=== PATIENT | male | born 1945 | race Caucasian/White ===

== ENCOUNTER → 2016-10-01 | Outpatient (CLI) | payer BC ==
[~2016-10-01] MED LIST: AMOX1TAB43 PO; ANT25 PO; ASPEC325 PO; ATEN50TA8 PO; COENCAP PO; DUTA0.5C PO; FLAX1CAP11 PO; GEMF600T3 PO; LISI-461 PO; MULT-506 PO; NSP500 PO; NTRAR PO; PRLSR20 PO; PXL20 PO; [UNRECOGNIZED DRUG - OTHER] OR
[2016-10-01 14:06] LABS: MEAN CELL VOLUME 92.3 fL (80-100); MEAN CORPUSCULAR HEMOGLOBIN 30.3 pg (25-34); MEAN CORPUSCULAR HGB CONC 32.8 g/dl (32-36); PLATELET COUNT 26 K/uL (130-400); RED BLOOD COUNT 4.66 M/uL (4.7-6.1); WHITE BLOOD COUNT 5.13 K/uL (4.8-10.8)
[2016-10-01 14:07] LABS: BASO % 1.4 %; BASO ABS # 0.07 K/uL (0-0.2); COMPLETE YES; EOS % 6.8 %; IG% 0.2 %; LYMPH % 34.1 %; LYMPH ABS # 1.75 K/uL (1.2-3.4); MONO % 10.9 %; NEUT % 46.6 %; PLT ESTIMATE DECREASED
[2016-10-01 14:15] LABS: AST/SGOT 26 U/L (15-37); BLOOD UREA NITROGEN 19 mg/dl (7-18); BUN/CREATININE RATIO 12.6 (10-20); CALCIUM 8.8 mg/dl (8.5-10.1); CARBON DIOXIDE 27 mmol/L (21-32); CHLORIDE 108 mmol/L (98-107); GLUCOSE 106 mg/dl (70-99); POTASSIUM 4.4 mmol/L (3.5-5.1); SODIUM 143 mmol/L (136-145)
[2016-10-01 14:18] LABS: ALT/SGPT 35 U/L (12-78); CHOLESTEROL 183 mg/dl (0-200); CHOLESTEROL/HDL RATIO 4.8; HDL CHOLESTEROL 38 mg/dl; LDL CHOLESTEROL CALCULATED 116 mg/dl; TRIGLYCERIDES 143 mg/dl (0-150); VERY LOW DENSITY LIPOPROT CALC 29 mg/dl
[2016-10-01 14:29] LABS: ESTIMATED AVERAGE GLUCOSE 111 mg/dl; HA1C FLAG Normal (Normal)
== END | disposition home or self-care (01) ==
LOC: C.LABBC 10:09
PROVIDERS: ATTEND Internal Medicine
DX: E78.5 Hyperlipidemia, unspecified (principal); R73.9 Hyperglycemia, unspecified; E55.9 Vitamin D deficiency, unspecified; R53.83 Other fatigue

== ENCOUNTER → 2016-10-02 | Outpatient (CLI) | payer BC, OTHER ==
[2016-10-02 11:11] LABS: HEMATOCRIT 41.8 % (42-52); MEAN CELL VOLUME 91.7 fL (80-100); MEAN CORPUSCULAR HEMOGLOBIN 29.8 pg (25-34); MEAN CORPUSCULAR HGB CONC 32.5 g/dl (32-36); MEAN PLATELET VOLUME 13.3 fL (7.4-10.4); PLATELET COUNT 26 K/uL (130-400); RED BLOOD COUNT 4.56 M/uL (4.7-6.1); WHITE BLOOD COUNT 6.59 K/uL (4.8-10.8)
[2016-10-02 11:12] LABS: BASO % 0.9 %; BASO ABS # 0.06 K/uL (0-0.2); COMPLETE YES; EOS % 6.1 %; IG% 0.3 %; LYMPH % 32.5 %; LYMPH ABS # 2.14 K/uL (1.2-3.4); MONO % 10.8 %; NEUT % 49.4 %; PLT ESTIMATE SIGNIFIC DECREASED
== END | disposition home or self-care (01) ==
LOC: C.LABBC 08:06
PROVIDERS: ATTEND Internal Medicine
DX: D69.6 Thrombocytopenia, unspecified (principal)

== ENCOUNTER → 2016-10-17 | Outpatient (CLI) | payer BC | END | disposition home or self-care (01) | LOC: C.LABBC 09:57 | PROVIDERS: ATTEND Internal Medicine | DX: Z00.00 Encounter for general adult medical examination without abnormal findings (principal); Z11.59 Encounter for screening for other viral diseases ==

== ENCOUNTER → 2016-10-28 | Outpatient (CLI) | payer BC | END | disposition home or self-care (01) | LOC: C.LABBC 14:23 | PROVIDERS: ATTEND Internal Medicine | DX: N40.1 Benign prostatic hyperplasia with lower urinary tract symptoms (principal) ==

== ENCOUNTER → 2017-01-30 | Outpatient (CLI) | payer BC ==
[~2017-01-30] MED LIST changes: +GADAVIST IV PRN
--- NOTE | 2017-01-30 07:50 | DIAGNOSTIC IMAGING REPORT ---
MRI OF THE BRAIN WITHOUT AND WITH IV CONTRAST CLINICAL HISTORY: DAILY HEADACHES, THROMBOCYTOPENIA. COMPARISON STUDY: MRI of the brain November 20, 2015. TECHNIQUE: Utilizing a 1.5 Tamiko magnet and dedicated coil, multiplanar, multiecho imaging of the brain was performed pre and postcontrast administration. IV administration of 9.5 mL of Gadavist contrast was uneventful. FINDINGS: There are no areas of restricted diffusion. No acute intracranial hemorrhage, midline shift or mass effect is present. Ventricular system is stable. Basilar cisterns are patent. There are no extra-axial collections. Flow-voids for the major intracranial vessels are present. No intracranial mass or pathologic enhancement is present. Scattered white matter T2 hyperintense foci are unchanged since MRI November 20, 2015 and suggest mild small vessel disease. There is mild mucosal thickening of the ethmoid sinuses. Orbits are unremarkable. Calvarium is normal. IMPRESSION: 1. No acute intracranial findings. 2. No intracranial mass or pathologic enhancement. 3. No change in appearance of the brain since exam of November 20, 2015. 4. Mild ethmoid sinus mucosal thickening. Electronically signed by: Jones Nick M.D. 01/30/2017 7:49 AM Dictated Date/Time: 01/30/2017 7:43 AM
== END | disposition home or self-care (01) ==
PROVIDERS: ATTEND Internal Medicine Hematology & Oncology
DX: D69.3 Immune thrombocytopenic purpura (principal); R51 Headache

== ENCOUNTER → 2017-03-11 | Outpatient (CLI) | payer BC ==
[~2017-03-11] MED LIST changes: -GADAVIST IV PRN
== END | disposition home or self-care (01) ==
LOC: C.LABBC 08:42
PROVIDERS: ATTEND Urology
DX: R97.20 Elevated prostate specific antigen [PSA] (principal)

== ENCOUNTER → 2017-05-19 | Outpatient (CLI) | payer BC ==
[2017-05-19 11:26] LABS: MEAN CELL VOLUME 90.7 fL (80-100); MEAN CORPUSCULAR HEMOGLOBIN 30.2 pg (25-34); MEAN CORPUSCULAR HGB CONC 33.3 g/dl (32-36); MEAN PLATELET VOLUME 11.4 fL (7.4-10.4); PLATELET COUNT 226 K/uL (130-400); RED BLOOD COUNT 4.74 M/uL (4.7-6.1); WHITE BLOOD COUNT 5.62 K/uL (4.8-10.8)
[2017-05-19 11:46] LABS: ALT/SGPT 63 U/L (12-78); AST/SGOT 38 U/L (15-37); BLOOD UREA NITROGEN 20 mg/dl (7-18); BUN/CREATININE RATIO 11.9 (10-20); CALCIUM 9.1 mg/dl (8.5-10.1); CARBON DIOXIDE 27 mmol/L (21-32); CHLORIDE 103 mmol/L (98-107); GLUCOSE 102 mg/dl (70-99); POTASSIUM 4.6 mmol/L (3.5-5.1); SODIUM 136 mmol/L (136-145)
[2017-05-19 11:49] LABS: CHOLESTEROL 216 mg/dl (0-200); CHOLESTEROL/HDL RATIO 6.2; HDL CHOLESTEROL 35 mg/dl; LDL CHOLESTEROL CALCULATED 146 mg/dl; TRIGLYCERIDES 175 mg/dl (0-150); VERY LOW DENSITY LIPOPROT CALC 35 mg/dl
== END | disposition home or self-care (01) ==
LOC: C.LABBC 08:25
PROVIDERS: ATTEND Internal Medicine
DX: I10 Essential (primary) hypertension (principal); E53.8 Deficiency of other specified B group vitamins; E55.9 Vitamin D deficiency, unspecified; E78.5 Hyperlipidemia, unspecified; D69.3 Immune thrombocytopenic purpura

== ENCOUNTER → 2017-06-26 | Outpatient (CLI) | payer BC ==
[2017-06-26 11:22] LABS: BLOOD UREA NITROGEN 18 mg/dl (7-18); BUN/CREATININE RATIO 11.5 (10-20); CALCIUM 9.9 mg/dl (8.5-10.1); CARBON DIOXIDE 26 mmol/L (21-32); CHLORIDE 107 mmol/L (98-107); GLUCOSE 104 mg/dl (70-99); POTASSIUM 4.4 mmol/L (3.5-5.1); SODIUM 139 mmol/L (136-145)
== END | disposition home or self-care (01) ==
LOC: C.LABBC 08:35
PROVIDERS: ATTEND Internal Medicine
DX: E78.5 Hyperlipidemia, unspecified (principal); R73.9 Hyperglycemia, unspecified

== ENCOUNTER → 2017-08-06 | Outpatient (CLI) | payer BC ==
[~2017-08-06] MED LIST changes: +GADAVIST IV PRN
--- NOTE | 2017-08-06 11:31 | DIAGNOSTIC IMAGING REPORT ---
PROSTATE MRI COMBO CLINICAL HISTORY: 71 years-old Male presenting with ELEVATED PSA, history of negative biopsy 10 years ago. PSA 4.47 ng/mL. TECHNIQUE: Multisequence, multiplanar MR imaging of the prostate was performed before and after the administration of intravenous contrast. Additional postprocessing was performed on a separate [employer] workstation by the radiologist for 3-D volumetric segmentation of the prostate and contouring of region(s) of interest (ANGIE) for targeting. IV contrast: 9.9 mL of Gadavist COMPARISON: None. FINDINGS: Prostate: The prostate measures 5.9 x 4.9 x 6.0 cm (DynaCAD prostate boundary segmentation volume 82 mL). Severe changes of benign prostatic hyperplasia. Precontrast T1 weighted imaging demonstrates no evidence of intrinsic T1 hyperintensity to suggest hemorrhage. Seminal vesicles atrophic. Peripheral zone diffusely atrophic and heterogeneously hypointense, limiting diagnostic sensitivity. Focal ovoid hypodense nodule without restricted diffusion in the left transition zone at the mid gland, likely a stromal predominant BPH nodule. No convincing evidence of an indistinct hypointense focus in the transition zone to suggest a suspicious lesion. No restricted diffusion in the peripheral zone to suggest a suspicious lesion. Bladder: Bladder wall thickening likely indicating chronic outlet obstruction. Bowel: Visualized portion of the rectum normal. Peritoneum: No free fluid in the pelvis. Lymph nodes: No lymphadenopathy in the visualized portion of the pelvis. Vasculature: Iliac vessels patent. Osseous structures: Normal bone marrow signal intensity. IMPRESSION: 1. No suspicious lesion for targeted biopsy. 2. Benign prostatic hyperplasia. T2 hypointense nodules in the transition zone likely represent stromal predominant BPH. Electronically signed by: Seth Jeronimo M.D. 08/06/2017 11:29 AM Dictated Date/Time: 08/06/2017 11:20 AM
== END | disposition home or self-care (01) ==
LOC: C.MRIBC 09:18
PROVIDERS: ATTEND Urology
DX: R97.20 Elevated prostate specific antigen [PSA] (principal); N40.0 Benign prostatic hyperplasia without lower urinary tract symptoms

== ENCOUNTER → 2017-09-12 | Outpatient (CLI) | payer BC ==
[~2017-09-12] MED LIST changes: -GADAVIST IV PRN
[2017-09-12 13:28] LABS: ALT/SGPT 105 U/L (12-78); BLOOD UREA NITROGEN 17 mg/dl (7-18); BUN/CREATININE RATIO 10.3 (10-20); CALCIUM 9.9 mg/dl (8.5-10.1); CARBON DIOXIDE 27 mmol/L (21-32); CHLORIDE 104 mmol/L (98-107); CREATININE 1.62 mg/dl (0.60-1.40); GLUCOSE 101 mg/dl (70-99); POTASSIUM 4.3 mmol/L (3.5-5.1); SODIUM 136 mmol/L (136-145)
[2017-09-12 13:30] LABS: ALB/GLOB RATIO 0.9 (0.9-2); ALKALINE PHOSPHATASE 74 U/L (45-117); AST/SGOT 78 U/L (15-37)
== END | disposition home or self-care (01) ==
LOC: C.LABBC 08:46
PROVIDERS: ATTEND Internal Medicine
DX: R79.89 Other specified abnormal findings of blood chemistry (principal)

== ENCOUNTER → 2017-09-23 | Outpatient (CLI) | payer BC ==
--- NOTE | 2017-09-23 11:59 | DIAGNOSTIC IMAGING REPORT ---
(LIVER) ABDOMEN LIMITED CLINICAL HISTORY: R79.89 Elevated LFTs abnormal liver enzymes TECHNIQUE: Ultrasound COMPARISON STUDY: 12/21/2009 FINDINGS: Similar exam compared to the prior study. Mild fatty infiltration of liver. Several small gallstones. Common bile duct 5 mm. Right kidney is negative for hydronephrosis. IMPRESSION: 1. Mild fatty infiltration of liver. 2. Several small gallstones. 3. Normal caliber bile duct. The above report was generated using voice recognition software. It may contain grammatical, syntax or spelling errors. Electronically signed by: Shadi Benson M.D. 09/23/2017 11:58 AM Dictated Date/Time: 09/23/2017 11:57 AM
== END | disposition home or self-care (01) ==
LOC: C.ULTR 10:06
PROVIDERS: ATTEND Internal Medicine
DX: R79.89 Other specified abnormal findings of blood chemistry (principal); K80.20 Calculus of gallbladder without cholecystitis without obstruction

== ENCOUNTER → 2017-10-28 | Outpatient (CLI) | payer BC ==
[2017-10-28 10:56] LABS: BASO ABS # 0.07 K/uL (0-0.2); EOS % 6.7 %; EOS ABS # 0.46 K/uL (0-0.5); HEMATOCRIT 45.6 % (42-52); HEMOGLOBIN 15.3 g/dL (14.0-18.0); IG# 0.05 K/uL (0.00-0.02); LYMPH % 29.4 %; LYMPH ABS # 2.01 K/uL (1.2-3.4); MEAN CELL VOLUME 96.6 fL (80-100); MEAN CORPUSCULAR HEMOGLOBIN 32.4 pg (25-34); MEAN CORPUSCULAR HGB CONC 33.6 g/dl (32-36); MEAN PLATELET VOLUME 12.1 fL (7.4-10.4); MONO % 11.7 %; NEUT % 50.5 %; NEUT ABS # 3.44 K/uL (1.4-6.5); PLATELET COUNT 201 K/uL (130-400); RED CELL DISTRIBUTION WIDTH CV 13.5 % (11.5-14.5); RED CELL DISTRIBUTION WIDTH SD 47.6 fL (36.4-46.3); WHITE BLOOD COUNT 6.83 K/uL (4.8-10.8)
[2017-10-28 11:21] LABS: ALBUMIN 3.9 gm/dl (3.4-5.0); TOTAL PROTEIN 8.2 gm/dl (6.4-8.2)
== END | disposition home or self-care (01) ==
LOC: C.LABBC 08:58
PROVIDERS: ATTEND Internal Medicine
DX: R79.89 Other specified abnormal findings of blood chemistry (principal); H83.09 Labyrinthitis, unspecified ear; D69.6 Thrombocytopenia, unspecified

== ENCOUNTER → 2018-01-21 | Outpatient (CLI) | payer BC ==
[2018-01-21 15:20] LABS: ALBUMIN 3.8 gm/dl (3.4-5.0); ALT/SGPT 60 U/L (12-78); AST/SGOT 43 U/L (15-37); BLOOD UREA NITROGEN 17 mg/dl (7-18); CALCIUM 9.4 mg/dl (8.5-10.1); CARBON DIOXIDE 24 mmol/L (21-32); GLUCOSE 111 mg/dl (70-99); POTASSIUM 4.7 mmol/L (3.5-5.1); SODIUM 138 mmol/L (136-145)
[2018-01-21 15:24] LABS: ALKALINE PHOSPHATASE 78 U/L (45-117); CHOLESTEROL 199 mg/dl (0-200); LDL CHOLESTEROL CALCULATED 135 mg/dl; TOTAL PROTEIN 7.9 gm/dl (6.4-8.2)
== END | disposition home or self-care (01) ==
LOC: C.LABBC 10:38
PROVIDERS: ATTEND Internal Medicine
DX: E78.5 Hyperlipidemia, unspecified (principal); R73.9 Hyperglycemia, unspecified; R79.89 Other specified abnormal findings of blood chemistry

== ENCOUNTER → 2018-01-26 | Outpatient (CLI) | payer BC | END | disposition home or self-care (01) | LOC: C.LAB 12:32 | PROVIDERS: ATTEND Urology | DX: R97.20 Elevated prostate specific antigen [PSA] (principal) ==

== ENCOUNTER → 2018-05-20 | Outpatient (CLI) | payer BC ==
[~2018-05-20] MED LIST changes: -GEMF600T3 PO; +GEMF600T5 PO
== END | disposition home or self-care (01) ==
LOC: C.LABBC 15:03
PROVIDERS: ATTEND Internal Medicine Cardiovascular Disease
DX: R00.0 Tachycardia, unspecified (principal)

== ENCOUNTER 2020-07-21 07:08 | Observation (INO) ==
[2020-07-21] MEDS ORDERED: HEPARIN (PORCINE) 1000 UNIT/ML 10 ML (CATH LAB USE ONLY) ONE (11:29)
[2020-07-21] MEDS ORDERED: fentaNYL citrate 100 MCG/2 ML VIAL ONE ×2 (11:29→13:01)
[2020-07-21] MEDS ORDERED: MIDAZOLAM HCL 1 MG/ML 2ML VIAL ONE ×2 (11:29→13:01)
[2020-07-21] MEDS ORDERED: niCARdipine HCL INJ 2.5 MG/ML 10 ML AMP ONE (11:29)
[2020-07-21] MEDS ORDERED: NITROGLYCERIN/D5W 100MCG/ML 20ML SYR ONE (11:30)
--- NOTE | 2020-07-21 11:41 | Pre Anesthesia Assessment ---
Date of Service July 21, 2020 Pre Sedation Assessment Vital Signs Temp Pulse Resp BP Pulse Ox 07/21/20 07:44 98.1 F 52 L 16 147/85 H 100 Cardiovascular RRR, no murmur, no edema Respiratory normal respiratory effort, lungs clear to auscultation Pre-Sedation Airway Assessment Smoking Status: Former smoker Hx Sleep Apnea: No Hx Difficult Intubation: No Short, Thick Neck: No Oral Cavity: + WNL Mallampati Class: IV ASA: ASA4 NPO Status Date of Last Intake of Fluids: 07/21/20 Time of Last Intake of Fluids: 06:30 Last Oral Intake of Fluids Comment: sip with meds Date of Last Intake of Solid Food: 07/20/20 Time of Last Intake of Solid Foods: 20:00 Procedure Planning Contraindications for Sedation: none Current Medications Reviewed: Yes Notes The planned sedation has been discussed with the patient. Informed Consent was obtained. I have identified the patient, determined the appropriateness of sedation and have assessed the patient immediately prior to the procedure. All medicine(s) and interventions are by my order.
--- NOTE | 2020-07-21 11:42 | History & Physical Bridge Note ---
Date of Service July 21, 2020 History & Physical Bridge Note I have examined the patient, reviewed the History & Physical and in the interval since the performance of the History & Physical I have noted the following changes of clinical significance: no changes noted
[2020-07-21] MEDS ORDERED: CLOPIDOGREL BISULFATE 300 MG TAB ONE (13:33)
[2020-07-21] MEDS ORDERED: EPTIFIBATIDE 0.75 MG/ML 75MG VIAL (CATH LAB USE ONLY) ONE (13:36)
[2020-07-21] MEDS ORDERED: EPTIFIBATIDE 2 MG/ML 10 ML VIAL (CATH LAB USE ONLY) IV ONE (13:36)
--- NOTE | 2020-07-21 13:45 | Post Anesthesia Assessment ---
Date of Service July 21, 2020 Post Sedation Assessment Vital Signs Temp Pulse Resp BP Pulse Ox 07/21/20 07:44 98.1 F 52 L 16 147/85 H 100 Recovery Score Activity: Moves 4 extremities Respiration: Deep Breath/Cough Circulation: +/-20% PreAnes Value Consciousness: Fully Awake Oxygen Saturation: O2 needed for >90% Discharge Sedation Level of Care: Fast Track Phase II Post Sedation Plan On clinical assessment, the patient appears to have tolerated the sedation without complications. Patient is recovering as anticipated. Patient will continue to be monitored by nursing and may be discharged when sedation discharge criteria are met per below protocol. Upon Completions of procedure up to 15 minutes continue every 5 minute vital signs and the P.A.R. score; then discharge to a Phase I or Fast Track to Phase II per the following guidelines: * Discharge Patient to appropriate Phase II area if PAR is 8 or greater or return to pre- procedure baseline. The post - procedure orders will be as directed. * If PAR score is less than 8 or not return to pre-procedure baseline then patient will follow Phase I monitoring till PAR is reached for Phase II. The Phase I may be done in procedure room or may call to secure a Phase I area. * If naloxone or flumazenil are used for reversal, hold in Phase I for continued monitoring from when last reversal dose was given for a minimum of 60 minutes or longer pending the nurse and/or physician discretion of patient condition before discharge to Phase II. Please call the Sedation Physician to re-evaluate and complete post-note for discharge to Phase II area. Do NOT discharge from procedure sedation or Phase 1 until post- sedation evaluation note is complete by procedure /sedation MD Sedation Discharge Instructions to be given to the patient at discharge to home.
[2020-07-21] MEDS ORDERED: EPTIFIBATIDE BOLUS/DRIP IV STA (13:46)
[2020-07-21] MEDS ORDERED: ACETAMINOPHEN 325 MG TAB PO PRN (13:46)
[2020-07-21] MEDS ORDERED: NITROGLYCERIN SL 0.4 MG/TAB TAB SL PRN (13:46)
[2020-07-21] MEDS ORDERED: ONDANSETRON INJ 2 MG/ML 2 ML VIAL IV PRN (13:46)
[2020-07-21] MEDS ORDERED: MECLIZINE HCL 25 MG TAB PO PRN (15:41)
--- NOTE | 2020-07-21 16:32 | Cardiac Catheterization ---
[facility] Data: Plant And Maintenance Technician Cardiac Status Clinical evaluation leading to the procedure CAD Presenation: Unstable angina Anginal Classification: CCS IV Heart Failure: No Cardiogenic Shock within 24 Hours: No Cardiac Arrest within 24 Hours: No Imaging Studies Past 6 Months: Yes Stress Studies Past 6 Months: No Diagnostic Physicians Name: Carlos Barajas MD Status: Elective Closure Device Percutaneous Entry Location: Radial Closure Device: Radial Band Recommendations: PCI without planned CABG Lesion Segment Name: Mid RCA Culprit Artery: Yes Stenosis Prior to Rx (%): 99 Chronic Total Occlusion: No IVUS: No Pre-Procedure KHALIF Flow: 3 Previously Treated Lesion: No Lesion Complexity: High/C Lesion Length (mm): 35 Thrombus Present: Yes Bifurcation Lesion: No Guidewire Across Lesion: Stenosis Post-Procedure (%): 0 Post-Procedure KHALIF Flow: 3 Devices(s) Deployed: Yes Yes Intraprocedure Events Significant Disection: No Perforation: No Cardiac Cath Procedure Full Procedure Date July 21, 2020 Pre-Procedure Diagnosis Pre-Procedure Diagnosis: Acute Coronary Syndrome AUC Score AUC Score: 7 Post-Procedure Diagnosis Post-Procedure Diagnosis: Severe CAD, Successful PCI and Elevated Intracardiac Pressures Procedure(s) Performed Procedure(s) Performed: Coronary Angiography, Left Heart Cath, Drug Eluting Stent and Ultrasound Guided Vascular Access Licensed Mortician Carlos Barajas MD Technical Consultant(s) uJni Celaya Estimated Blood Loss Estimated Blood Loss: 15 Medication(s) Medication(s): Fentanyl, Heparin, Lidocaine 1%, Nicardipine, Nitroglycerin and Versed Summary of Findings Indication: Unstable angina Access: 6 Fr right radial artery under ultrasound guidance Catheters: [employer], JR4 guide Findings: LM -normal caliber, luminal irregularities LAD -small caliber, 50 to 60% proximal stenosis, diffuse 30 to 40% mid segment disease, distal vessel with luminal irregularities and return apex. D2 with 70% ostial stenosis. Circumflex -medium caliber, patent proximal to mid stent with 30 to 40% in-stent restenosis. Medium caliber OM 2 and distal AV groove circumflex with luminal irregularities. RCA -dominant, heavily calcified, medium caliber, diffuse moderate RCA disease before 99% acute latemid stenosis. Diffuse 30 to 40% distal RCA disease extending into small right PDA. LVEDP -22 -- PCI -- Antithrombotic therapy: Heparin, clopidogrel, Integrilin Procedure: RCA cannulated with JR4 guide Grid Maker 50 wire passed across lesion into distal vessel With the aid of a telescope support catheter mid RCA dilated with 1.5, 2.0, 2.5 and 3.0 compliant balloons. Earlymid RCA segment dilated with 2.75 NC. Eventually able to deliver 2.5 x 12 mm Eduard JUVENCIO across latemid stenosis. Second JUVENCIO (2.75 x 18 mm [place]) placed to mid segment overlapping with proximal aspect of initially placed stent. Stent post-dilated with 2.75 noncompliant balloon IC vasodilators administered for spasm Area of haziness proximal to second stent and with angioplasty of that area and possible trauma from support catheter a third JUVENCIO placed (2.75 x 15 Eduard) overlapping proximal aspect of second stent. Post procedure KHALIF 3 flow, stents well expanded with minimal residual stenosis. New area of haziness immediately downstream from distalmost stent appeared most consistent with thrombus. Started on Integrilin infusion. Arterial Closure: TR band Summary: 1. Severe multi-vessel coronary artery disease -Heavily calcified, diffusely diseased mid RCA up to 99% 50 to 60% proximal LAD, 70% ostial D2 Patent circumflex stent with 30 to 40% in-stent restenosis 2. Elevated intracardiac filling pressure 3. Successful PCI of diffuse mid RCA disease with 3 overlapping drug-eluting stents (2.75 x 15, 2.75 x 18, 2.5 x 12 mm Eduard). Recommendations: To PCU for continued monitoring Loaded with clopidogrel 600 mg in Plant And Maintenance Technician Continue Integrilin for 8 hours Continue dual-antiplatelet therapy for at least 1 year, likely indefinitely with multivessel disease and overlapping stents. Continue ASCVD risk factor modification Consult cardiac Rehab Hemodynamics Rest Ao:: 125/69/92 Final Ao: 114/61/83 LV: 128/22 Recommendations Recommendations: PCI without planned CABG Specimens Specimens: None Radiation Exposure (mGy) 5512 Contrast (mls) 110 Fluids (cc crystalloids) Fluids (cc crystalloids): 380 Drains Drains: None Anesthesia Moderate Procedural Complication(s) None Disposition PCU I attest to the content of the Intraoperative Record and any orders documented therein. Any exceptions are noted below. [facility] Card Cath Procedure Codes Cardiac Catheterization Procedure 1: Cardiovascular Cath Procedures: 21335 Coronaries and LHC (+/-LV) Therapeutic Services & Ancillary Proc Procedure 1: Cardiovascular Tx and Anc Procedures: 32809 Ultrasonic Guidance Vascular Access Stenting Procedure 1: Cardiovascular Stent Procedures: 07747 Perc transcatheter placement of intracoronary stent(s), with ang PG Care Time/CCT Total # of Minutes Spent Total Time Spent with Patient: Total time spent is greater than 50% in coordination of care (as documented) at patient's floor/unit and/or counseling patient:
[2020-07-21] MEDS: EPTIFIBATIDE 75 MG/100 ML VIAL IV SCH ×2 (17:08→20:12)
[2020-07-21] MEDS: gemfibroziL 600 MG TAB PO SCH (19:52)
[2020-07-21] MEDS ORDERED: AMITRIPTYLINE HCL 10 MG TAB PO SCH (21:00)
[2020-07-21] MEDS ORDERED: NIACIN 500 MG TAB PO SCH (21:00)
[2020-07-21] MEDS ORDERED: NIACIN EXTENDED REL 500 MG TABCR PO SCH (21:00)
[2020-07-22 06:00] LABS: Basophils # (auto) 0.01 K/uL (0-0.2); Basophils % (auto) 0.1 %; Eosinophils # (auto) 0.23 K/uL (0-0.5); Eosinophils % (auto) 2.9 %; Hematocrit (blood only) 43.2 % (42-52); Hemoglobin 14.6 g/dL (14.0-18.0); Immature Granulocytes # (auto) 0.03 K/uL (0.00-0.02); Immature Granulocytes % (auto) 0.4 %; Lymphocytes # (auto) 1.66 K/uL (1.2-3.4); Lymphocytes % (auto) 20.9 %; Mean Corpuscular Hemoglobin 32.3 pg (25-34); Mean Corpuscular Hgb Conc 33.8 g/dL (32-36); Mean Corpuscular Volume 95.6 fL (80-100); Mean Platelet Volume 12.4 fL (7.4-10.4); Monocytes # (auto) 0.38 K/uL (0.11-0.59); Monocytes % (auto) 4.8 %; Neutrophils # (auto) 5.62 K/uL (1.4-6.5); Neutrophils % (auto) 70.9 %; Platelet Count 148 K/uL (130-400); Red Blood Count 4.52 M/uL (4.7-6.1); White Blood Count 7.93 K/uL (4.8-10.8)
[2020-07-22 06:27] LABS: BUN Creatinine Ratio 12.2 (10-20); Calcium 8.9 mg/dl (8.5-10.1); Creatinine Clr Calc Pharmacy 49.2 ml/min; Est GFR (African American) 50.4; Est GFR (Non-African American) 43.5; Potassium 4.1 mmol/L (3.5-5.1)
[2020-07-22] MEDS: gemfibroziL 600 MG TAB PO SCH (08:55)
[2020-07-22] MEDS ORDERED: FAMOTIDINE 20 MG TAB PO SCH (09:00)
[2020-07-22] MEDS ORDERED: CYANOCOBALAMIN 500 MCG TABLET (VITAMIN B-12) PO SCH (09:00)
[2020-07-22] MEDS ORDERED: MAGNESIUM OXIDE 400 MG TAB PO SCH (09:00)
[2020-07-22] MEDS ORDERED: CLOPIDOGREL BISULFATE 75 MG TAB PO SCH (09:00)
[2020-07-22] MEDS ORDERED: LOSARTAN POTASSIUM 25 MG TAB PO SCH (09:00)
[2020-07-22] MEDS ORDERED: METOPROLOL SUCC 50MG EXT REL TAB PO SCH (09:00)
[2020-07-22] MEDS ORDERED: ASPIRIN 81 MG ECTAB PO SCH (09:00)
[2020-07-22] MEDS ORDERED: NON-FORMULARY MEDICATION (Coenzyme Q10 [Coq-10] 100 MG) PO SCH (09:00)
[2020-07-22] MEDS ORDERED: PARoxetine HCL 20 MG TAB PO SCH (09:00)
--- NOTE | 2020-07-23 13:51 | Electrocardiogram Report ---
Test Reason : Blood Pressure : / mmHG Vent. Rate : 052 BPM Atrial Rate : 052 BPM P-R Int : 216 ms QRS Dur : 132 ms QT Int : 450 ms P-R-T Axes : 044 017 -05 degrees QTc Int : 418 ms Sinus bradycardia with 1st degree A-V block Right bundle branch block Inferior infarct , age undetermined Abnormal ECG When compared with ECG of 06-MAR-2019 14:27, Vent. rate has decreased BY 54 BPM Inferior infarct is now Present ST elevation has replaced ST depression in Anterior leads T wave inversion more evident in Inferior leads T wave inversion no longer evident in Anterior leads Confirmed by Sandoval Guajardo ([id number]) on 07/23/2020 1:50:36 PM Referred By: Simon Barajas Confirmed By:Sandoval Guajardo
--- NOTE | 2020-07-30 09:07 | Discharge Summary ---
Date of Service July 30, 2020 Admission HPI Per Admitting Provider Mr. Gallardo is a 74-year-old man with a history of coronary artery disease referred for cardiac catheterization setting accelerating angina. His primary home inspector is Dr. Moy. History per his last note: History of myocardial infarction 1996. Subsequent PTCA of totally occluded left circumflex coronary artery. Cardiac catheterization 1999 with normal overall left ventricular systolic function, posterolateral hypokinesis, severe stenosis in left circumflex extending into left circumflex marginal. 2.5 x 16 mm stent deployed. Prior catheterization in 1996 had revealed a 50% mid LAD, 50% distal RCA, and total proximal left circumflex stenosis. Right to left collateral flow present at that time. Persantine Cardiolite scan 2007 negative for evidence of myocardial ischemia. Normal left ventricular wall motion. History of diverticulosis. Dyslipidemia.Intolerant of multiple statins. 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 Initially treated with steroids. Then treated with immunoglobulin therapy. Then treated with Rituxan. Platelet count was as low as 7000. It returned to normal . Approximately 1 week after starting Rituxan developed left-sided headache and left ear tinnitus. Associated vertigo. With amitriptyline the headaches improved. No visual changes. 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 Admission to [facility] in [facility] December 10, 2019-December 14 2019 for viral gastroenteritis, and acute kidney injury. He presented with nausea, vomiting, and diarrhea. During admission troponin was elevated to 1.88. No anginal symptoms. Electrocardiogram without any acute changes of myocardial ischemia or injury. No cardiac evaluation performed other than the electrocardiogram. The troponin levels decreased during the admission. Was felt that he had a type [address] elevation myocardial infarction. Specialty Data Cardiology Cardiac catheterization/PCI: 1. Severe multi-vessel coronary artery disease -Heavily calcified, diffusely diseased mid RCA up to 99% 50 to 60% proximal LAD, 70% ostial D2 Patent circumflex stent with 30 to 40% in-stent restenosis 2. Elevated intracardiac filling pressure 3. Successful PCI of diffuse mid RCA disease with 3 overlapping drug-eluting stents (2.75 x 15, 2.75 x 18, 2.5 x 12 mm Bradshaw). Recommendations: To PCU for continued monitoring Loaded with clopidogrel 600 mg in Research Biologist Continue Integrilin for 8 hours Continue dual-antiplatelet therapy for at least 1 year, likely indefinitely with multivessel disease and overlapping stents. Continue ASCVD risk factor modification Consult cardiac Rehab Discharge Data Consultations 07/21/20 13:48 Consult Cardiac Rehabilitation Routine Procedures Performed Operation Date: 07/21/20 11:00 Actual Procedures p Cath, Left with Cors and Vent - Simon Barajas MD s Cineradiography w/Routine Exam - Simon Barajas MD s Drug Eluting Stent SGl Vessel - Simon Barajas MD s Ultrasound Vascular Access - Simon Barajas MD Hospital Course (1) Arteriosclerotic cardiovascular disease: Patient underwent cardiac catheterization via right radial artery. He was found to have severe, heavily calcified single-vessel disease involving his RCA. He underwent PCI to his diffusely diseased mid RCA with 3 overlapping drug- eluting stents. Post procedure there was questionable mild residual thrombus just distal to stents. Treated with Integrilin infusion overnight. Post procedure he had no chest pain and was feeling well. He remained hemodynamically and electrically stable. Post procedure labs stable. No apparent access site complications. On hospital day 2 he was discharged home on DAPT with aspirin, clopidogrel. He will follow-up with Dr. Moy in 2 weeks. Discharge Instructions Home Medications Prostate Health 1 tab PO DAILY 03/06/19 [History Confirmed 07/24/20] cholecalciferol (vitamin D3) [Vitamin D3] 1,000 unit PO DAILY 03/06/19 [History Confirmed 07/24/20] cyanocobalamin (vitamin B-12) [Vitamin B-12] 1,000 mcg PO DAILY 03/06/19 [History Confirmed 07/24/20] flaxseed oil 2,000 mg PO QPM 03/06/19 [History Confirmed 07/24/20] niacin 2,000 mg PO HS 03/06/19 [History Confirmed 07/24/20] riboflavin (vitamin B2) [Vitamin B-2] 200 mg PO BID 03/06/19 [History Confirmed 07/24/20] coenzyme Q10 100 mg capsule 100 mg PO DAILY cap 05/10/19 [History Confirmed 07/24/20] meclizine 25 mg tablet 25 mg PO DAILY PRN #90 tab 05/13/19 [Rx Confirmed 07/24/20] amitriptyline 10 mg tablet 20 mg PO HS #180 tab 07/17/20 [Rx Confirmed 07/24/20] famotidine 20 mg tablet 20 mg PO DAILY #90 tab 07/17/20 [Rx Confirmed 07/24/20] gemfibrozil 600 mg tablet 600 mg PO BID #180 tab 07/17/20 [Rx Confirmed 07/24/20] losartan 25 mg tablet 25 mg PO DAILY #90 tab 07/17/20 [Rx Confirmed 07/24/20] magnesium oxide 400 mg (241.3 mg magnesium) tablet 400 mg PO DAILY #90 tab 07/17/20 [Rx Confirmed 07/24/20] metoprolol succinate 100 mg tablet,extended release 24 hr 100 mg PO DAILY #90 tab 07/17/20 [Rx Confirmed 07/24/20] nitroglycerin 400 mcg/spray translingual 1 spray SUBLINGUAL UD PRN #25 g 07/17/20 [Rx Confirmed 07/24/20] paroxetine HCl 20 mg tablet 20 mg PO DAILY #90 tab 07/17/20 [Rx Confirmed 07/24/20] aspirin 81 mg tablet,delayed release 81 mg PO DAILY #90 tab 07/18/20 [Rx Confirmed 07/24/20] clopidogrel 75 mg tablet 75 mg PO QAM #7 tab 07/25/20 [Rx] dutasteride 0.5 mg capsule 0.5 mg PO DAILY #7 cap 07/25/20 [Rx] Coding Level of Care Code 67351 OBS Care - Discharge Diagnoses Arteriosclerotic cardiovascular disease I25.10
== END 2020-07-22 11:29 | disposition home or self-care (01) ==
LOC: CC 07:08 → 2S 07:08

== ENCOUNTER 2023-10-20 14:59 | Inpatient (IN) ==
--- NOTE | 2023-10-20 15:07 | ED Triage Note ---
Date of Service October 20, 2023 Provider in Triage Author: Arvin Emmanuel History of Present Illness This patient was briefly evaluated while in triage. An abbreviated physical exam was performed. This patient is a 77-year-old Male who presents to the ED for evaluation of dizziness, weakness, lightheadedness that has been present for the past 6 weeks. Has been taking meclizine, history of vertigo. Dizziness is worse with positional changes. No vomiting. At rest, no symptoms. Has had some shortness of breath when climbing stairs. Physical Exam CONSTITUTIONAL: in no acute pain or distress, resting comfortably SKIN: pink, warm, dry CARDIAC: regular rate and rhythm RESPIRATORY: in no respiratory distress, lungs clear to auscultation NEURO: no focal deficits. negative pronator drift, no gross CN deficits Initial orders for labs and / or imaging were placed and patient was placed in the waiting area until a bed is available. Please see further documentation for the full ED course.
[2023-10-20 15:34] LABS: Basophils # (auto) 0.06 K/uL (0.00-0.20); Basophils % (auto) 0.5 %; Eosinophils # (auto) 0.11 K/uL (0.00-0.50); Hematocrit (blood only) 44.3 % (42.0-52.0); Hemoglobin 14.5 g/dl (14.0-18.0); Immature Granulocytes # (auto) 0.12 K/uL (0.01-0.20); Immature Granulocytes % (auto) 1.1 %; Lymphocytes # (auto) 2.84 K/uL (1.20-3.40); Lymphocytes % (auto) 24.9 %; Mean Corpuscular Hemoglobin 30.9 pg (25.0-34.0); Mean Corpuscular Hgb Conc 32.7 g/dL (32.0-36.0); Mean Corpuscular Volume 94.3 fL (80.0-100.0); Mean Platelet Volume 10.2 fL (9.4-12.4); Monocytes # (auto) 0.97 K/uL (0.11-0.59); Monocytes % (auto) 8.5 %; Neutrophils # (auto) 7.29 K/uL (1.40-6.50); Platelet Count 220 K/uL (130-400); RDW Coefficient of Variation 14.5 % (11.5-14.5); White Blood Count 11.39 K/ul (4.8-10.8)
--- NOTE | 2023-10-20 15:45 | CT Scan Report ---
CT head/brain wo con CLINICAL HISTORY: headache, dizziness Technique: Contiguous axial CT images of the head were acquired from the base of the skull to the nissa nasra without intravenous contrast administration. Images were viewed in brain, [facility] . Automated dose lowering techniques and/or adjustment according to patient size were utilized for this exam. Comparison: Comparison is made to CT head 11/19/2015 Findings: Areas of decreased attenuation are present in the periventricular and subcortical white matter bilate rally consistent with small vessel ischemic disease. Generalized cerebral atrophy with commensurate e nlargement of the ventricles, sulci, and cisterns is also present. There is no acute intracranial hem orrhage or evidence of acute territorial infarction. No shift of the midline structures, mass effect, or extra-axial abnormalities are shown. Atherosclerotic calcifications are present in the intracran ial segments of the internal carotid arteries. Imaged portions of the paranasal sinuses and mastoid air cells are clear. The orbits appear normal. There are no acute fractures of the calvaria or scalp swelling. Impression: No acute intracranial hemorrhage, no evidence of acute territorial infarction or other acute intracra nial disease process. ACT 112: Negative or not required by law. Electronically signed by: Steven Myers M.D. 10/20/2023 3:44 PM
[2023-10-20 15:51] LABS: Albumin Globulin Ratio 1.1 (0.9-2); Albumin Level 4.2 gm/dl (3.4-5.0); BUN Creatinine Ratio 13.2 (10-20); Bilirubin,Total 0.9 mg/dl (0.2-1.0); Calcium 10.2 mg/dl (8.6-10.3); Creatinine Clr Calc Pharmacy 79.3 ml/min; Est GFR (African American) 57.4 ml/min; Est GFR (Non-African American) 49.5 ml/min; Potassium 4.6 mmol/L (3.5-5.1); Total Protein 8.2 gm/dl (6.0-8.3)
[2023-10-20 15:57] LABS: Troponin I High Sensitivity 6.4 pg/ml (0-20)
--- NOTE | 2023-10-20 16:05 | XRay Report ---
XR chest 1V not portable HISTORY: 77 years-old Male shortness of breath, dizziness COMPARISON: 09/05/2022 TECHNIQUE: PA view of the chest FINDINGS: Cardiomediastinal and hilar silhouettes are within normal limits. There is no pneumothorax, pleural e ffusion or airspace consolidation. The bones of the chest appear grossly intact. IMPRESSION: No acute process. ACT 112: Negative or not required by law. The above report was generated using voice recognition software. It may contain grammatical, syntax o r spelling errors. Electronically signed by: Bubba Chan M.D. 10/20/2023 4:04 PM
--- NOTE | 2023-10-20 16:46 | Electrocardiogram Report ---
Test Reason : Blood Pressure : / mmHG Vent. Rate : 053 BPM Atrial Rate : 053 BPM P-R Int : 174 ms QRS Dur : 128 ms QT Int : 456 ms P-R-T Axes : 012 061 028 degrees QTc Int : 427 ms Sinus bradycardia Right bundle branch block Abnormal ECG When compared with ECG of 21-JUL-2020 16:16, [place] interval has decreased Criteria for Inferior infarct are no longer Present T wave inversion no longer evident in Inferior leads Confirmed by Carlos Squires ([id number]) on 10/20/2023 4:45:55 PM Referred By: Confirmed By:Franki Squires
[2023-10-20] MEDS ORDERED: SODIUM CHLORIDE 0.9% 1,000 ML IV ONE (19:00)
[2023-10-20] MEDS ORDERED: PROCHLORPERAZINE 1 ML IV ONE (19:00)
[2023-10-20] MEDS ORDERED: diphenhydrAMINE 50 MG/ML VIAL IV STA (19:00)
--- NOTE | 2023-10-20 19:04 | Emergency Department Note ---
Impression & Plan Dizziness, Acute UTI (urinary tract infection) ED Provider Note HISTORY OF PRESENT ILLNESS: Patient is a 77-year-old male presenting with headache, dizziness and fatigue. Patient reports he has had a "constant, viselike headache" for the last 6 weeks. He reports that he takes amitriptyline for history of migraines but it has not been helping his persistent headache. He is also been trying to take Tylenol with little relief. He states the headache has been near constant for 6 weeks. Denies any recent falls or head injury. He denies any fevers. He has been traveling for the last 6 weeks visiting family in [place]. He states that he is also had near constant dizziness. He describes the dizziness as feeling like he is spinning and he is going to fall. He reports it does occur with changes in head position and changes in body position, but then will happen all of a sudden. He states that the dizziness lasts for minutes at a time and then recurs within a few minutes. He states that it has been significantly worse in the last week. He denies any double or blurry vision. He denies any chest pain with the episodes. He does report shortness of breath with exertion in the last 3 days. reports that he has been very fatigued and has been sleeping for 12 to 14 hours a day in the last 3 days. No recent exposure to sick contacts. Patient states that he has a history of vertigo but this feels different. He states he has been taking meclizine and it has not been helping his dizziness. He called his primary care provider's office today and they referred him to the ER for further workup. He also reports some lower abdominal pressure that has been occurring intermittently over the last week or so, more notably after eating. Denies any changes in bowel habits. He denies any numbness or tingling or significant weakness in his extremities. Denies any DVT or PE history. ROS: as above PHYSICAL EXAM: Constitutional: Patient appears in no acute distress. HENT: Head: Normocephalic and atraumatic. Eyes: EOMI, PERRL Mouth/Throat: Mucous membranes moist. Neck: Trachea midline. Neck supple. Cardiovascular: RRR, No murmurs, rubs or gallops. Intact distal pulses. Pulmonary/Chest: No respiratory distress. Breath sounds clear and equal bilaterally. No wheezes or rales. Abdominal: Abdomen soft, no tenderness, rebound or guarding. Musculoskeletal: No edema, tenderness or deformity noted. Skin: Warm and dry. No rash, erythema, pallor or cyanosis Psychiatric: Appropriate mood and affect for situation. Neurological: Alert and keenly responsive. Facies symmetric. Able to raise eyebrows, close eyes, smile, puff mouth, stick out tongue, move tongue left and right and raise palate symmetrically. Able to shrug shoulders. PERRLA. SILT to forehead below eye and at jawline. Can hear soft noise bilaterally. Good finger to nose. Strength 5/5 in bilateral upper and lower extremities. SILT throughout bilateral upper and lower extremities. MDM: - Vitals signs showed hypertension. - History obtained via patient. Patient presents with dizziness and headache. Patient is had a constant headache and near constant dizziness for the last 6 weeks. Reports symptoms have been significantly worse in the last week or so. He is also been having significant fatigue in the last few days and sleeping 12 to 14 hours a day. He describes the dizziness as he is spinning and he is going to fall over. He states that it last for few minutes at a time and then recurs within a few minutes. He has been taking meclizine with little relief in symptoms. Denies any chest pain but does report some shortness of breath. Denies any DVT or PE history. - Chronic conditions affecting care: CAD; migraine headaches; HTN - Differential diagnoses include, but are not limited to: ACS; pneumonia; intracranial hemorrhage; electrolyte abnormality; UTI; dysrhythmia; PE - Order placed for continuous cardiac monitoring. At this time, monitor showed rate of 56 bpm with normal sinus rhythm, per my interpretation. - External medical records reviewed. Primary care visit note dated 06/26/2023 was reviewed. Patient has a history of ITP and vitamins B12 and D deficiencies. - EKG interpreted by myself showed normal sinus rhythm. Rate bradycardic at 53 bpm. QT 456. Noted to have a right bundle branch block but no obvious acute ischemia. - Laboratory workup interpreted by myself showed leukocytosis (WBC 11.39) with slight left shift; stable electrolytes; normal creatinine; normal troponin; negative lyme panel - CXR negative for pneumonia, per my interpretation - CT head wo contrast negative for acute pathology - CT PE negative for PE. - Given patient's current dizziness, MRI of the brain was obtained to rule out potential cerebellar stroke. MRI of the brain negative for any acute pathology. - UA showed evidence of infection. Given 2g IV rocephin in ER. - Respiratory viral panel negative. - Patient given 1L NS, 25 mg IV benadryl and 12.5 mg IV compazine for headache. On reassessment, still complaining of slight headache. - Unclear etiology for patient's symptoms at this time. May just be secondary to his UTI. However, patient is slightly more bradycardic during his visit today than he has been on past ER visits. He may be having symptomatic bradycardia, but think this is less likely. Discussion with the patient and his , they are concerned given his persistent symptoms and his safety and getting around at home. - Discussion was had with managed care manager about patient's case and need for admission - Hospitalist consulted for admission - Patient admitted to [facility] for further evaluation and management. ASSESSMENT AND PLAN: Diagnosis: UTI; dizziness Plan: Admit Past Med/Surg History Medical History Bilateral tinnitus Contusion of shoulder, left Foreign body in left ear Foreign body in right ear History of elevated prostate specific antigen (PSA) History of renal insufficiency syndrome Left hip pain Presence of drug-eluting stent in right coronary artery Presence of stent in left circumflex coronary artery Skin infection Statin intolerance Unstable angina Surgical History History of cardiac catheterization History of dental surgery History of knee surgery History of percutaneous transluminal coronary angioplasty Family History Father Heart disease Myocardial infarction Mother Cancer Brain tumor Daughter Breast cancer Uncle Myocardial infarction Other No pertinent family history Denies family history of Colon cancer Ovarian cancer Prostate cancer Social History Smoking Status: Former smoker Hx Alcohol Use: Yes Alcohol type: wine Alcohol type Comment: Social Hx Substance Use: No Preferred Language: [place] Citizen Communication Ability: Effective Visual Impairment: No Limitations Hearing Ability: Normal Beliefs That Will Affect Care: None marital status: marital status details: Current Living Situation: Spouse current occupational status: retired Feels Safe at Home: Yes Dental Care, Regularly: Yes Physical Activity Frequency: 3-4 Times per Week Physical Activity Frequency Comment: abs, light weights, gardening, wlaking Seatbelt Use: always Sunscreen Use: Yes Assistive Devices: None Allergies Allergies Allergy/AdvReac Type Severity Reaction Status Date / Time lisinopril Allergy Unknown Unknown Verified 10/20/23 19:27 codeine AdvReac Severe PANIC/RESTLESS Verified 10/20/23 19:27 SLEEP Foangbq-KRV-RpH Reductase AdvReac Severe Muscle Pain Verified 10/20/23 19:27 Inhibitor [Hnulxzh-Gsr-Ixb Reductase Inhibitor] hydromorphone AdvReac U UNKNOWN Verified 10/20/23 19:27 simvastatin AdvReac U MUSCULAR Verified 10/20/23 19:27 RELATED Home Meds Home Medications Medication Instructions Recorded Confirmed cholecalciferol (vitamin D3) 25 1,000 unit PO DAILY 03/06/19 10/20/23 mcg (1,000 unit) capsule (Vitamin D3) cyanocobalamin (vitamin B-12) 1,000 mcg PO DAILY 03/06/19 10/20/23 1,000 mcg tablet (Vitamin B-12) flaxseed oil 1,000 mg capsule 2,000 mg PO QPM 03/06/19 10/20/23 saw palm 160 mg-vit E 100 1 tab PO DAILY 03/06/19 10/20/23 unit-selen 100 ksy-xazf-srspsp-pygeum tablet (Prostate Health) coenzyme Q10 100 mg capsule 100 mg PO DAILY 05/10/19 10/20/23 (CoQ-10) riboflavin (vitamin B2) 100 mg 100 mg PO BID 03/21/21 10/20/23 tablet (Vitamin B-2) amitriptyline 10 mg tablet 20 mg PO HS PRN Insomnia 10/20/23 10/20/23 aspirin 81 mg tablet,delayed 81 mg PO QPM 10/20/23 10/20/23 release (Adult Low Dose Aspirin) famotidine 20 mg tablet 20 mg PO QPM 10/20/23 10/20/23 Previous Rx's Medication Instructions Recorded ondansetron 4 mg disintegrating 4 mg PO Q8H PRN nausea and 01/21/22 tablet vomiting #30 tabs cyclobenzaprine 10 mg tablet 10 mg PO HS PRN spasms #30 tabs 03/18/23 alirocumab 150 mg/mL subcutaneous 150 mg subcut Q14D #4 mL 08/27/23 pen injector (Praluent Pen) clopidogrel 75 mg tablet 75 mg PO QAM #90 tabs 08/27/23 dutasteride 0.5 mg capsule 0.5 mg PO DAILY #90 caps 08/27/23 (Avodart) losartan 25 mg tablet (Cozaar) 25 mg PO DAILY #90 tabs 08/27/23 magnesium oxide 400 mg (241.3 mg 400 mg PO DAILY #90 tabs 08/27/23 magnesium) tablet meclizine 25 mg tablet 25 mg PO DAILY PRN DIZZY #90 tabs 08/27/23 metoprolol succinate 100 mg 100 mg PO DAILY #90 tabs 08/27/23 tablet,extended release 24 hr (Toprol XL) nitroglycerin 400 mcg/spray 1 spray sublingual UD PRN Chest 08/27/23 translingual (Nitrolingual) Pain #25 grams paroxetine HCl 20 mg tablet 20 mg PO DAILY #90 tabs 09/03/23 Results & Data (ED) Vital Signs Vital Signs - 24 hr 10/20/23 15:04 10/20/23 18:46 10/20/23 19:53 Temperature 36.4 C L Temperature Source Oral Pulse Rate - Lying 52 L Pulse Rate - Sitting 55 L Pulse Rate - Standing 60 Pulse Rate 56 L Pulse Rate [Finger] 52 L Respiratory Rate 18 18 Respiratory Effort / Characteristics Non-Labored Spontaneous Non-Labored Respiratory Depth Normal Normal Blood Pressure - Lying 135/81 Blood Pressure - Sitting 130/86 Blood Pressure- Standing 130/83 Blood Pressure 163/102 H Blood Pressure [Left Arm] 152/84 H Blood Pressure Mean 122 Blood Pressure Mean [Left Arm] 106 Blood Pressure Position Sitting Pulse Oximetry 99 96 Oxygen Delivery Method Room Air Room Air Sepsis Recent Fever Within 48 Hours No Sepsis New/Unexplained Change in Mental Status N/A Sepsis Action Taken by Nursing No Action Required Laboratory Data 10/20/23 15:15 10/20/23 15:15 Lab Results 10/20/23 10/20/23 10/20/23 Range/Units 15:15 18:47 19:55 WBC 11.39 H (4.8-10.8) K/ul RBC 4.70 (4.70-6.10) M/uL Hgb 14.5 (14.0-18.0) g/dl Hct 44.3 (42.0-52.0) % MCV 94.3 (80.0-100.0) fL MCH 30.9 (25.0-34.0) pg MCHC 32.7 (32.0-36.0) g/dL RDW Std Deviation 50.0 H (36.4-46.3) fL RDW Coeff of Sae 14.5 (11.5-14.5) % Plt Count 220 (130-400) K/uL MPV 10.2 (9.4-12.4) fL Immature Gran % (Auto) 1.1 % Neut % (Auto) 64.0 % Lymph % (Auto) 24.9 % [place] % (Auto) 8.5 % Eos % (Auto) 1.0 % Baso % (Auto) 0.5 % Neut # (Auto) 7.29 H (1.40-6.50) K/uL Lymph # (Auto) 2.84 (1.20-3.40) K/uL [place] # (Auto) 0.97 H (0.11-0.59) K/uL Eos # (Auto) 0.11 (0.00-0.50) K/uL Baso # (Auto) 0.06 (0.00-0.20) K/uL Immature Gran # (Auto) 0.12 (0.01-0.20) K/uL Sodium 137 (136-145) mmol/L Potassium 4.6 (3.5-5.1) mmol/L Chloride 102 (98-107) mmol/L Carbon Dioxide 28 (21-32) mmol/L Anion Gap 7 (3-11) BUN 18 (6-23) mg/dl Creatinine 1.36 (0.6-1.4) mg/dl Est Cr Clr Drug Dosing 79.3 ml/min Est GFR ( Amer) 57.4 ml/min Est GFR (Non-Af Amer) 49.5 ml/min BUN/Creatinine Ratio 13.2 (10-20) Glucose 103 H (70-99(Fasting)) mg/dl Calcium 10.2 (8.6-10.3) mg/dl Total Bilirubin 0.9 (0.2-1.0) mg/dl AST 21 (13-39) U/L ALT 23 (7-52) U/L Alkaline Phosphatase 71 (34-104) U/L Troponin I High Sens 6.4 (0-20) pg/ml Total Protein 8.2 (6.0-8.3) gm/dl Albumin 4.2 (3.4-5.0) gm/dl Globulin 4.0 (2.5-4.0) gm/dl Albumin/Globulin Ratio 1.1 (0.9-2) Urine Color Dark Yellow Urine Appearance Turbid A (Clear) Urine pH 8.0 H (4.5-7.5) Ur Specific [place] 1.013 (1.000-1.030) Urine Protein Trace H (Negative) Urine Glucose (UA) Negative (Negative) Urine Ketones Negative (Negative) Urine Blood Trace H (Negative) Urine Nitrite Positive A (Negative) Urine Bilirubin Negative (Negative) Urine Urobilinogen Negative (Negative) Ur Leukocyte Esterase 3+ H (Negative) Urine WBC (Auto) >30 H (0-5) /hpf Urine RBC (Auto) 0-4 (0-4) /hpf U Hyaline Cast (Auto) 1-5 (0-5) /lpf U Epithel Cells (Auto) 10-20 H (0-5) /lpf Urine Bacteria (Auto) 1+ H (Negative) Adenovirus (PCR) Not Detected (NotDetected) Anaplasma Smear See Comment B. pertussis DNA (PCR) Not Detected (NotDetected) B.parapertussis DNA PCR Not Detected (NotDetected) Lyme Disease IgG Ab (Negative) Lyme Disease IgM Ab (Negative) C. pneumoniae DNA (PCR) Not Detected (NotDetected) Coronavirus OC43 (PCR) Not Detected (NotDetected) Coronavirus HKU1 (PCR) Not Detected (NotDetected) Coronavirus 229E (PCR) Not Detected (NotDetected) SARS-CoV-2 (PCR) Not Detected (NotDetected) Coronavirus NL63 (PCR) Not Detected (NotDetected) Human Metapneumovir PCR Not Detected (NotDetected) Influenza Type A (PCR) Not Detected (NotDetected) Influenza Type B (PCR) Not Detected (NotDetected) M. pneumoniae (PCR) Not Detected (NotDetected) Parainfluenza 1 (PCR) Not Detected (NotDetected) Parainfluenza 2 (PCR) Not Detected (NotDetected) Parainfluenza 3 (PCR) Not Detected (NotDetected) Parainfluenza 4 (PCR) Not Detected (NotDetected) RSV (PCR) Not Detected (NotDetected) Entero/Rhino (PCR) Not Detected (NotDetected) 10/20/23 Range/Units 20:09 WBC (4.8-10.8) K/ul RBC (4.70-6.10) M/uL Hgb (14.0-18.0) g/dl Hct (42.0-52.0) % MCV (80.0-100.0) fL MCH (25.0-34.0) pg MCHC (32.0-36.0) g/dL RDW Std Deviation (36.4-46.3) fL RDW Coeff of Sae (11.5-14.5) % Plt Count (130-400) K/uL MPV (9.4-12.4) fL Immature Gran % (Auto) % Neut % (Auto) % Lymph % (Auto) % [place] % (Auto) % Eos % (Auto) % Baso % (Auto) % Neut # (Auto) (1.40-6.50) K/uL Lymph # (Auto) (1.20-3.40) K/uL [place] # (Auto) (0.11-0.59) K/uL Eos # (Auto) (0.00-0.50) K/uL Baso # (Auto) (0.00-0.20) K/uL Immature Gran # (Auto) (0.01-0.20) K/uL Sodium (136-145) mmol/L Potassium (3.5-5.1) mmol/L Chloride (98-107) mmol/L Carbon Dioxide (21-32) mmol/L Anion Gap (3-11) BUN (6-23) mg/dl Creatinine (0.6-1.4) mg/dl Est Cr Clr Drug Dosing ml/min Est GFR ( Amer) ml/min Est GFR (Non-Af Amer) ml/min BUN/Creatinine Ratio (10-20) Glucose (70-99(Fasting)) mg/dl Calcium (8.6-10.3) mg/dl Total Bilirubin (0.2-1.0) mg/dl AST (13-39) U/L ALT (7-52) U/L Alkaline Phosphatase (34-104) U/L Troponin I High Sens (0-20) pg/ml Total Protein (6.0-8.3) gm/dl Albumin (3.4-5.0) gm/dl Globulin (2.5-4.0) gm/dl Albumin/Globulin Ratio (0.9-2) Urine Color Urine Appearance (Clear) Urine pH (4.5-7.5) Ur Specific [place] (1.000-1.030) Urine Protein (Negative) Urine Glucose (UA) (Negative) Urine Ketones (Negative) Urine Blood (Negative) Urine Nitrite (Negative) Urine Bilirubin (Negative) Urine Urobilinogen (Negative) Ur Leukocyte Esterase (Negative) Urine WBC (Auto) (0-5) /hpf Urine RBC (Auto) (0-4) /hpf U Hyaline Cast (Auto) (0-5) /lpf U Epithel Cells (Auto) (0-5) /lpf Urine Bacteria (Auto) (Negative) Adenovirus (PCR) (NotDetected) Anaplasma Smear B. pertussis DNA (PCR) (NotDetected) B.parapertussis DNA PCR (NotDetected) Lyme Disease IgG Ab Negative (Negative) Lyme Disease IgM Ab Negative (Negative) C. pneumoniae DNA (PCR) (NotDetected) Coronavirus OC43 (PCR) (NotDetected) Coronavirus HKU1 (PCR) (NotDetected) Coronavirus 229E (PCR) (NotDetected) SARS-CoV-2 (PCR) (NotDetected) Coronavirus NL63 (PCR) (NotDetected) Human Metapneumovir PCR (NotDetected) Influenza Type A (PCR) (NotDetected) Influenza Type B (PCR) (NotDetected) M. pneumoniae (PCR) (NotDetected) Parainfluenza 1 (PCR) (NotDetected) Parainfluenza 2 (PCR) (NotDetected) Parainfluenza 3 (PCR) (NotDetected) Parainfluenza 4 (PCR) (NotDetected) RSV (PCR) (NotDetected) Entero/Rhino (PCR) (NotDetected) Administered Medications Discontinued Medications Diphenhydramine HCl (Diphenhydramine 50 Mg/Ml Vial) 25 mg IV NOW STA Stop: 10/20/23 19:01 Last Admin: 10/20/23 19:56 Dose: 25 mg Documented By: KIRAN Sodium Chloride (Nss) 1,000 mls @ 999 mls/hr IV .Q1H1M ONE Stop: 10/20/23 20:00 Last Infusion: 10/20/23 21:19 Dose: Infused Documented By: Admin: 10/20/23 19:52 Dose: 999 mls/hr Documented By: KIRAN Prochlorperazine (Compazine) 1 mls @ 1 mls/min IV ONE ONE Stop: 10/20/23 19:01 Last Admin: 10/20/23 19:56 Dose: 1 mls/min Documented By: KIRAN Ceftriaxone Sodium (Rocephin) 2,000 mg in 50 mls @ 100 mls/hr IV NOW STA Stop: 10/20/23 20:56 Last Infusion: 10/20/23 21:18 Dose: Infused Documented By: Admin: 10/20/23 20:46 Dose: 100 mls/hr Documented By: KIRAN Ioversol (Optiray 320 125ml) 114 ml IV ONCE ONE Stop: 10/20/23 21:58 Last Admin: 10/20/23 21:58 Dose: 114 ml Documented By: YANCI Imaging Data Radiologist's Impression: Head CT 10/20/23 15:07 CT head/brain wo con CLINICAL HISTORY: headache, dizziness Technique: Contiguous axial CT images of the head were acquired from the base of the skull to the vertex without intravenous contrast administration. Images were viewed in brain, subdural and bone windows. Automated dose lowering techniques and/or adjustment according to patient size were utilized for this exam. Comparison: Comparison is made to CT head 11/19/2015 Findings: Areas of decreased attenuation are present in the periventricular and subcortical white matter bilaterally consistent with small vessel ischemic disease. Generalized cerebral atrophy with commensurate enlargement of the ventricles, sulci, and cisterns is also present. There is no acute intracranial hemorrhage or evidence of acute territorial infarction. No shift of the midline structures, mass effect, or extra-axial abnormalities are shown. Atherosclerotic calcifications are present in the intracranial segments of the internal carotid arteries. Imaged portions of the paranasal sinuses and mastoid air cells are clear. The orbits appear normal. There are no acute fractures of the calvaria or scalp swelling. Impression: No acute intracranial hemorrhage, no evidence of acute territorial infarction or other acute intracranial disease process. ACT 112: Negative or not required by law. Electronically signed by: Steven Myers M.D. 10/20/2023 3:44 PM Chest X-Ray 10/20/23 15:11 XR chest 1V not portable HISTORY: 77 years-old Male shortness of breath, dizziness COMPARISON: 09/05/2022 TECHNIQUE: PA view of the chest FINDINGS: Cardiomediastinal and hilar silhouettes are within normal limits. There is no pneumothorax, pleural effusion or airspace consolidation. The bones of the chest appear grossly intact. IMPRESSION: No acute process. ACT 112: Negative or not required by law. The above report was generated using voice recognition software. It may contain grammatical, syntax or spelling errors. Electronically signed by: Bubba Chan M.D. 10/20/2023 4:04 PM Brain MRI 10/20/23 18:26 Exam(s): MRI HEAD Without Contrast EXAM: MR Head Without Intravenous Contrast CLINICAL HISTORY: weakness; dizziness. TECHNIQUE: Magnetic resonance images of the head/brain without intravenous contrast in multiple planes. COMPARISON: MRI with and without contrast dated 01/30/2017 FINDINGS: Brain: Diffusion-weighted imaging is negative for acute or subacute infarct. There are a few punctate areas of abnormal T2 signal in the deep cerebral white matter most consistent with mild small vessel ischemic/degenerative changes. The cerebral and cerebellar sulci are mildly prominent consistent with mild brain atrophy. The expected midline structures are stable in appearance on sagittal imaging when compared to the previous examination. No hemorrhage. Ventricles: Unremarkable. No ventriculomegaly. Bones/joints: Unremarkable. No acute fracture. Sinuses: Unremarkable as visualized. No acute sinusitis. Mastoid air cells: Unremarkable as visualized. No mastoid effusion. Orbits: Unremarkable as visualized. IMPRESSION: No evidence of acute or subacute infarct. No significant alteration from the previous examination. Electronically signed by: Heriberto Wilde MD 10/20/23 20:14 PM Chest CTA 10/20/23 20:19 Exam(s): CTA CHEST IV Amt: 114 ml optiray 320 EXAM: CT Angiography Chest With Intravenous Contrast CLINICAL HISTORY: PE; dizziness; SOB with exertion. TECHNIQUE: Axial computed tomographic angiography images of the chest with intravenous contrast. CTDI is 36 mGy and DLP is 723.31 mGy-cm. Automated exposure control was utilized for the study. A dose lowering technique was utilized adhering to the principles of ALARA. MIP reconstructed images were created and reviewed. COMPARISON: No relevant prior studies available. FINDINGS: Limitations: There is respiratory artifact, which degrades image quality on multiple image slices. Pulmonary arteries: Accounting for mild respiratory artifact, there is no evidence for pulmonary embolism. Aorta: The unenhanced thoracic aorta demonstrates atherosclerotic calcification. No enlargement. Lungs: Dependent subsegmental changes noted involving both lungs with expiratory lung volumes. No focal airspace consolidation. Pleural space: Unremarkable. No significant effusion. No pneumothorax. Heart: Cardiac chambers are borderline prominent. Prominent coronary artery calcification is of uncertain clinical significance in patients of this age group. No pericardial effusion. Bones/joints: No acute fracture. No dislocation. Soft tissues: Unremarkable. Lymph nodes: Unremarkable. No enlarged lymph nodes. IMPRESSION: 1. Accounting for mild respiratory artifact, there is no evidence for pulmonary embolism. 2. Dependent subsegmental presumed atelectatic changes noted involving both lungs with expiratory lung volumes. No focal airspace consolidation. No pleural effusion or pneumothorax. Electronically signed by: Heriberto Wilde MD 10/20/23 22:17 PM Discharge Plan Visit Data Chief Complaint: Syncope (Near Syncope) Stated Complaint: DIZZY, HEADACHE ED Provider: Nicole Trujillo Discharge Problem: Dizziness, Acute UTI (urinary tract infection) Forms Stand Alone Forms: [facility] Prescriptions Prescriptions: No Action cyclobenzaprine 10 mg tablet 10 mg PO HS PRN (Reason: spasms) Qty: 30 1RF dutasteride [Avodart] 0.5 mg capsule 0.5 mg PO DAILY Qty: 90 3RF losartan [Cozaar] 25 mg tablet 25 mg PO DAILY Qty: 90 3RF magnesium oxide 400 mg (241.3 mg magnesium) tablet 400 mg PO DAILY Qty: 90 3RF meclizine 25 mg tablet 25 mg PO DAILY PRN (Reason: DIZZY) Qty: 90 1RF metoprolol succinate [Toprol XL] 100 mg tablet extended release 24 hr 100 mg PO DAILY Qty: 90 3RF nitroglycerin [Nitrolingual] 400 mcg/spray spray,non-aerosol 1 spray sublingual UD PRN (Reason: Chest Pain) Qty: 25 3RF Praluent Pen 150 mg/mL pen injector 150 mg subcut Q14D Qty: 4 11RF Rx Instructions: inject into abdomen, thigh, or upper arm (deltoid muscle); rotate sites clopidogrel 75 mg tablet 75 mg PO QAM Qty: 90 3RF paroxetine HCl 20 mg tablet 20 mg PO DAILY Qty: 90 3RF ondansetron 4 mg tablet,disintegrating 4 mg PO Q8H PRN (Reason: nausea and vomiting) Qty: 30 1RF cyanocobalamin (vitamin B-12) [Vitamin B-12] 1,000 mcg Tablet 1,000 mcg PO DAILY flaxseed oil 1,000 mg Capsule 2,000 mg PO QPM cholecalciferol (vitamin D3) [Vitamin D3] 1,000 unit Capsule 1,000 unit PO DAILY Prostate Health 160-100-100 mg-unit-mcg Tablet 1 tab PO DAILY coenzyme Q10 [CoQ-10] 100 mg capsule 100 mg PO DAILY riboflavin (vitamin B2) [Vitamin B-2] 100 mg tablet 100 mg PO BID aspirin [Adult Low Dose Aspirin] 81 mg tablet,delayed release (DR/EC) 81 mg PO QPM famotidine 20 mg tablet 20 mg PO QPM amitriptyline 10 mg tablet 20 mg PO HS PRN (Reason: Insomnia) Referrals Referrals: Pro,Baltazar Velasquez MD [Primary Care Provider] -
[2023-10-20 19:53] LABS: Adenovirus PCR Not Detected (NotDetected); Bordetella parapertussis PCR Not Detected (NotDetected); Bordetella pertussis PCR Not Detected (NotDetected); Chlamydia pneumoniae PCR Not Detected (NotDetected); Coronavirus 229E PCR Not Detected (NotDetected); Coronavirus CoV-2 (COVID19)PCR Not Detected (NotDetected); Coronavirus HKU1 PCR Not Detected (NotDetected); Coronavirus NL63 PCR Not Detected (NotDetected); Coronavirus OC43PCR Not Detected (NotDetected); Human Metapneumovirus PCR Not Detected (NotDetected); Influenza A PCR Not Detected (NotDetected); Influenza B PCR Not Detected (NotDetected); Mycoplasma pneumoniae PCR Not Detected (NotDetected); Parainfluenza Virus 1 PCR Not Detected (NotDetected); Parainfluenza Virus 2 PCR Not Detected (NotDetected); Parainfluenza Virus 3 PCR Not Detected (NotDetected); Parainfluenza Virus 4 PCR Not Detected (NotDetected); Respiratory Syncytial VirusPCR Not Detected (NotDetected); Rhinovirus/Enterovirus PCR Not Detected (NotDetected)
--- NOTE | 2023-10-20 20:15 | Magnetic Resonance Report ---
Exam(s): MRI HEAD Without Contrast EXAM: MR Head Without Intravenous Contrast CLINICAL HISTORY: weakness; dizziness. TECHNIQUE: Magnetic resonance images of the head/brain without intravenous contrast in multiple planes. COMPARISON: MRI with and without contrast dated 01/30/2017 FINDINGS: Brain: Diffusion-weighted imaging is negative for acute or subacute infarct. There are a few punctate areas of abnormal T2 signal in the deep cerebral white matter most consistent with mild small vessel ischemic/degenerative changes. The cerebral and cerebellar sulci are mildly prominent consistent with mild brain atrophy. The expected midline structures are stable in appearance on sagittal imaging when compared to the previous examination. No hemorrhage. Ventricles: Unremarkable. No ventriculomegaly. Bones/joints: Unremarkable. No acute fracture. Sinuses: Unremarkable as visualized. No acute sinusitis. Mastoid air cells: Unremarkable as visualized. No mastoid effusion. Orbits: Unremarkable as visualized. IMPRESSION: No evidence of acute or subacute infarct. No significant alteration from the previous examination. Electronically signed by: Heriberto Wilde MD 10/20/23 20:14 PM
[2023-10-20 20:16] LABS: Appearance Urine Turbid (Clear); Bacteria Urine Automated 1+ (Negative); Bilirubin Urine Negative (Negative); Blood Urine Trace (Negative); Color Urine Dark Yellow; Glucose Urine UA Negative (Negative); Ketones Urine Negative (Negative); Leukocyte Esterase Urine 3+ (Negative); Nitrite Urine Positive (Negative); RBC Urine Automated 0-4 /hpf (0-4); Specific Gravity Urine 1.013 (1.000-1.030); Urobilinogen Urine Negative (Negative); WBC Urine Automated >30 /hpf (0-5)
[2023-10-20 20:24] LABS: Protein Urine Trace (Negative)
[2023-10-20] MEDS ORDERED: cefTRIAXone SODIUM 2,000 MG/50 ML BAG IV STA (20:27)
[2023-10-20 21:06] LABS: Lyme Ab IgG w/WB Rflx Negative (Negative); Lyme Ab IgM w/WB Rflx Negative (Negative)
[2023-10-20] MEDS ORDERED: OPTIRAY 320 125ml IV ONE (21:57)
--- NOTE | 2023-10-20 21:58 | History & Physical Report ---
Date of Service October 20, 2023 Assessment & Plan (1) BPPV (benign paroxysmal positional vertigo): Plan: Pt is a 77 yo male with PMH of essential tremor, [place] s/p stenting (1996), vitamin D and B12 deficiency, HTN, HLD, BPH, depression, ITP, BPPV, and migraines p resenting d/t syncope. BPPV - pt follows with neuro for essential tremor, migraines, and vertigo - head CT neg, brain MRI w/o change from prior in 2017; CTA neg for PE - orthostatic VS WNL - d/t provocation on eduarda hallpike, suspect main cause of symptoms is BPPV - will continue with IVF d/t lack of PO intake, meclizine PRN - consult PT for sindy maneuver ?UTI - pt's UA showed positive nitrite, positive LE, WBC >30, 1+ bacteria; urine culture pending - pt with hx of BPH and frequent urination; no recent changes in urinary symptoms - s/p ceftriaxone x1 in ED; no further antibiotics indicated Hx of migraines - suspect current flare in relation to flare of BPPV - continue magnesium and B2 - continue tylenol and amitriptyline PRN BPH - continue home dutasteride CAD, hx of [place] - stable, trop neg - no cardiac concerns upon admission - continue home aspirin, plavix, metoprolol 100 mg, losartan 25mg HTN - continue home regimen as above HLD - pt on praluent at home (q14day injections) - pt due on Oct 23 Depression - continue home paroxetine 20 mg ITP - chronic, stable - platelets 220 upon admission Diet: heart healthy VTE ppx: deferring, plan for discharge tomorrow after PT (for Sindy maneuver training) Code: full Dispo: med/surg (2) Arteriosclerotic cardiovascular disease: (3) Depression: (4) Hyperlipidemia: (5) Hypertension: (6) Immune thrombocytopenia: (7) Essential tremor: (8) UTI (urinary tract infection): History of Present Illness Chief Complaint: dizziness Primary Care Provider: Baltazar Serrano MD Pt is a 77 yo male with PMH of essential tremor, [place] s/p stenting (1996), vitamin D and B12 deficiency, HTN, HLD, BPH, depression, ITP, BPPV, and migraines presenting d/t syncope. Pt explains that his headaches began ~6 weeks ago while visiting family in [place]. No acute inciting event. Since then, they have been waxing/waning. However, over the past weekend they have become constant. He describes the pain as a "vice spd manager" around his head. He has taken tylenol and amitriptyline at home with little relief. In addition to the headaches, he is also experiencing an increase in dizziness. He has a hx of vertigo but it is typically well controlled. He has taken meclizine w/o relief. He notes he feels as though he is spinning and this sensation is worse with positional changes and turning corners while walking around his house. Over the past few days, he notes SOB on exertion. This is new for him. He becomes winded when walking up stairs. He denies syncope and chest pain. Previously, his migraines have been fairly well controlled with amitriptyline. At his last neurology visit (11/2022), it was noted that he had good control over his BPPV/orthostasis symptoms. His essential tremor is slowly worsening but he does not take medications for this. In the ER, pt received 1L of NS, ceftriaxone x1, benadryl 25mg, and compazine x1 with some improvement. Allergies Allergy/AdvReac Type Severity Reaction Status Date / Time lisinopril Allergy Unknown Unknown Verified 10/20/23 19:27 codeine AdvReac Severe PANIC/RESTLESS Verified 10/20/23 19:27 SLEEP Mcipjdq-BEC-UnE Reductase AdvReac Severe Muscle Pain Verified 10/20/23 19:27 Inhibitor [Gzpmamd-Opg-Mif Reductase Inhibitor] hydromorphone AdvReac U UNKNOWN Verified 10/20/23 19:27 simvastatin AdvReac U MUSCULAR Verified 10/20/23 19:27 RELATED Home Medications Medication Instructions Recorded Confirmed Type cholecalciferol (vitamin D3) 25 1,000 unit PO DAILY 03/06/19 10/20/23 History mcg (1,000 unit) capsule (Vitamin D3) cyanocobalamin (vitamin B-12) 1,000 mcg PO DAILY 03/06/19 10/20/23 History 1,000 mcg tablet (Vitamin B-12) flaxseed oil 1,000 mg capsule 2,000 mg PO QPM 03/06/19 10/20/23 History saw palm 160 mg-vit E 100 1 tab PO DAILY 03/06/19 10/20/23 History unit-selen 100 voq-vrfd-foydpc-pygeum tablet (Prostate Health) coenzyme Q10 100 mg capsule 100 mg PO DAILY 05/10/19 10/20/23 History (CoQ-10) riboflavin (vitamin B2) 100 mg 100 mg PO BID 03/21/21 10/20/23 History tablet (Vitamin B-2) ondansetron 4 mg disintegrating 4 mg PO Q8H PRN nausea and 01/21/22 10/20/23 Rx tablet vomiting #30 tabs cyclobenzaprine 10 mg tablet 10 mg PO HS PRN spasms #30 tabs 03/18/23 10/20/23 Rx alirocumab 150 mg/mL subcutaneous 150 mg subcut Q14D #4 mL 08/27/23 10/20/23 Rx pen injector (Praluent Pen) clopidogrel 75 mg tablet 75 mg PO QAM #90 tabs 08/27/23 10/20/23 Rx dutasteride 0.5 mg capsule 0.5 mg PO DAILY #90 caps 08/27/23 10/20/23 Rx (Avodart) losartan 25 mg tablet (Cozaar) 25 mg PO DAILY #90 tabs 08/27/23 10/20/23 Rx magnesium oxide 400 mg (241.3 mg 400 mg PO DAILY #90 tabs 08/27/23 10/20/23 Rx magnesium) tablet meclizine 25 mg tablet 25 mg PO DAILY PRN DIZZY #90 tabs 08/27/23 10/20/23 Rx metoprolol succinate 100 mg 100 mg PO DAILY #90 tabs 08/27/23 10/20/23 Rx tablet,extended release 24 hr (Toprol XL) nitroglycerin 400 mcg/spray 1 spray sublingual UD PRN Chest 08/27/23 10/20/23 Rx translingual (Nitrolingual) Pain #25 grams paroxetine HCl 20 mg tablet 20 mg PO DAILY #90 tabs 09/03/23 10/20/23 Rx amitriptyline 10 mg tablet 20 mg PO HS PRN Insomnia 10/20/23 10/20/23 History aspirin 81 mg tablet,delayed 81 mg PO QPM 10/20/23 10/20/23 History release (Adult Low Dose Aspirin) famotidine 20 mg tablet 20 mg PO QPM 10/20/23 10/20/23 History Past Med/Surg History Medical History Bilateral tinnitus Contusion of shoulder, left Foreign body in left ear Foreign body in right ear History of elevated prostate specific antigen (PSA) History of renal insufficiency syndrome Left hip pain Presence of drug-eluting stent in right coronary artery Presence of stent in left circumflex coronary artery Skin infection Statin intolerance Unstable angina Surgical History History of cardiac catheterization History of dental surgery History of knee surgery History of percutaneous transluminal coronary angioplasty Family History Father Heart disease Myocardial infarction Mother Cancer Brain tumor Daughter Breast cancer Uncle Myocardial infarction Other No pertinent family history Denies family history of Colon cancer Ovarian cancer Prostate cancer Social History Smoking Status: Former smoker Hx Alcohol Use: Yes Alcohol type: wine Alcohol type Comment: Social Hx Substance Use: No Preferred Language: [place] Communication Ability: Effective Visual Impairment: No Limitations Hearing Ability: Normal Beliefs That Will Affect Care: None marital status: marital status details: Current Living Situation: Spouse current occupational status: retired Feels Safe at Home: Yes Dental Care, Regularly: Yes Physical Activity Frequency: 3-4 Times per Week Physical Activity Frequency Comment: abs, light weights, gardening, wlaking Seatbelt Use: always Sunscreen Use: Yes Assistive Devices: None Review of Systems Review of Systems: As per HPI Physical Exam Physical Exam: Constitutional: well appearing, no acute distress HEENT: normocephalic, no conjunctival injection, bilateral TM clear with significant cerumen impaction on the left CV: RRR, no murmur, no LE edema Respiratory: CTA bilaterally. No rhonchi, wheezes, or crackles. No increased work of breathing GI: soft, nondistended, nontender, + bowel sounds MSK: no gross deformities noted Skin: warm, dry, no rashes Neuro: alert, oriented, no FND noted Psych: mood and affect congruent Results & Data Results & Data Vital Signs (Past 12 Hours) Vital Signs Temp Pulse Pulse Resp BP BP Pulse Ox 10/20/23 19:53 52 L 18 152/84 H 96 10/20/23 15:04 36.4 C L 56 L 18 163/102 H 99 O2 Del Method 10/20/23 19:53 Room Air 10/20/23 15:04 Room Air Supervising Physician Co-Signing Physician Notes Patient seen and examined, chart reviewed, case discussed with Celeste Card, and I agree with the assessment and plan as above except as otherwise noted Labs and images reviewed Hx HLD, migraine, essential tremor. Presented to ER on referral from PCP. Developed heaches without vision change several weeks ago while travelling. Waxing/waning with periods of complete resolution, subsequently developed positional dizziness with room spinning quality. No improvement with meclizine, APAP, or amitryptaline. For the last few days has had some increased SoB with exertion/going up stairs. No chest pain or chest pressure. Has not had any episodes of syncope or falls. UA infeceted vs contaminated appearing. BPH history with nocturia, no recent change or dysuria. CTA-C negative but with atelectasis, MRI with naf, CT-H with naf. Benadryl, fluids, compazine while in the ER did seem to help his symptoms. Biofire negative. trop normal. no ischemic ekg changes, redemonstrated RBBB. on bedside exam patient has no symptoms to [facility] with the head in the left position, on rightward position Eduarda- Hallpike produces severe vertigo and rotary nystagmus consistent with BPPV. Agree w. management above. PT consulted for Sindy. DDx includes labyrinthitis given recent URI, although with clear [facility] suspect this is less likely and will defer steroids. No evidence of central vertigo on imaging studies. Resident Activity Tracking Resident Involvement: Resident Care Provided Care Provided: Adult [facility] Medicine
--- NOTE | 2023-10-20 22:18 | CT Scan Report ---
Exam(s): CTA CHEST IV Amt: 114 ml optiray 320 EXAM: CT Angiography Chest With Intravenous Contrast CLINICAL HISTORY: PE; dizziness; SOB with exertion. TECHNIQUE: Axial computed tomographic angiography images of the chest with intravenous contrast. CTDI is 36 mGy and DLP is 723.31 mGy-cm. Automated exposure control was utilized for the study. A dose lowering technique was utilized adhering to the principles of ALARA. MIP reconstructed images were created and reviewed. COMPARISON: No relevant prior studies available. FINDINGS: Limitations: There is respiratory artifact, which degrades image quality on multiple image slices. Pulmonary arteries: Accounting for mild respiratory artifact, there is no evidence for pulmonary embolism. Aorta: The unenhanced thoracic aorta demonstrates atherosclerotic calcification. No enlargement. Lungs: Dependent subsegmental changes noted involving both lungs with expiratory lung volumes. No focal airspace consolidation. Pleural space: Unremarkable. No significant effusion. No pneumothorax. Heart: Cardiac chambers are borderline prominent. Prominent coronary artery calcification is of uncertain clinical significance in patients of this age group. No pericardial effusion. Bones/joints: No acute fracture. No dislocation. Soft tissues: Unremarkable. Lymph nodes: Unremarkable. No enlarged lymph nodes. IMPRESSION: 1. Accounting for mild respiratory artifact, there is no evidence for pulmonary embolism. 2. Dependent subsegmental presumed atelectatic changes noted involving both lungs with expiratory lung volumes. No focal airspace consolidation. No pleural effusion or pneumothorax. Electronically signed by: Heriberto Wilde MD 10/20/23 22:17 PM
[2023-10-20] MEDS ORDERED: ACETAMINOPHEN 325 MG TAB PO PRN (22:46)
[2023-10-20] MEDS ORDERED: MELATONIN 3 MG TAB PO PRN (22:46)
[2023-10-20] MEDS ORDERED: predniSONE 20 MG TAB PO STA (22:46)
[2023-10-20] MEDS ORDERED: ONDANSETRON INJ 2 MG/ML 2 ML VIAL IV PRN (22:46)
--- NOTE | 2023-10-20 23:10 | Billing Data ---
Date of Service October 20, 2023 Coding Level of Care Code 15267 INT INP/OBS CARE
[2023-10-21] MEDS ORDERED: CYCLOBENZAPRINE HCL 10 MG TAB PO PRN (00:14)
[2023-10-21] MEDS ORDERED: AMITRIPTYLINE HCL 10 MG TAB PO PRN (00:14)
[2023-10-21] MEDS ORDERED: MECLIZINE HCL 25 MG TAB PO PRN (00:14)
[2023-10-21] MEDS: LACTATED RINGER'S 1,000 ML IV SCH ×2 (00:15→07:58)
[2023-10-21] MEDS: MAGNESIUM OXIDE 400 MG TAB PO SCH (07:55)
[2023-10-21] MEDS: METOPROLOL SUCC 50MG EXT REL TAB PO SCH (07:55)
[2023-10-21] MEDS: CLOPIDOGREL BISULFATE 75 MG TAB PO SCH (07:56)
[2023-10-21] MEDS: FINASTERIDE 5 MG TAB PO SCH (07:57)
[2023-10-21 08:07] LABS: BUN Creatinine Ratio 11.5 (10-20); Calcium 9.3 mg/dl (8.6-10.3); Creatinine Clr Calc Pharmacy 51.9 ml/min; Est GFR (Non-African American) 51.8 ml/min; Potassium 3.9 mmol/L (3.5-5.1)
[2023-10-21 08:13] LABS: Hematocrit (blood only) 41.4 % (42.0-52.0); Hemoglobin 13.5 g/dl (14.0-18.0); Mean Corpuscular Hgb Conc 32.6 g/dL (32.0-36.0); Mean Corpuscular Volume 95.2 fL (80.0-100.0); Mean Platelet Volume 10.6 fL (9.4-12.4); Platelet Count 194 K/uL (130-400); RDW Coefficient of Variation 14.6 % (11.5-14.5); Red Blood Count 4.35 M/uL (4.70-6.10); White Blood Count 12.12 K/ul (4.8-10.8)
[2023-10-21] MEDS ORDERED: PARoxetine HCL 20 MG TAB PO SCH (09:00)
[2023-10-21] MEDS ORDERED: RIBOFLAVIN 100 MG PO SCH (09:00)
[2023-10-21] MEDS ORDERED: LOSARTAN POTASSIUM 25 MG TAB PO SCH (09:00)
[2023-10-21] MEDS ORDERED: cefTRIAXone SODIUM 1,000 MG in DEXTROSE 5 % MINI-B 50 ML IV SCH (11:15)
[2023-10-21] MEDS ORDERED: cefTRIAXone SODIUM 2,000 MG in DEXTROSE 5 % MINI-B 50 ML IV SCH (12:00)
[2023-10-21] MEDS: SODIUM CHLORIDE 0.9% 1,000 ML IV SCH (12:01)
[2023-10-21] MEDS ORDERED: SODIUM CHLORIDE 0.9% 1,000 ML IV ONE ×2 (14:16→17:56)
[2023-10-21] MEDS ORDERED: MEROPENEM 1,000 MG in SYRINGE 0 ML IV SCH (14:30)
--- NOTE | 2023-10-21 14:42 | Hospitalist Progress Note ---
Date of Service October 21, 2023 Assessment & Plan (1) Arteriosclerotic cardiovascular disease: (2) Depression: (3) Hyperlipidemia: (4) Hypertension: (5) Immune thrombocytopenia: (6) Essential tremor: (7) BPPV (benign paroxysmal positional vertigo): Plan: Pt is a 77 yo male with PMH of essential tremor, [place] s/p stenting (1996), vitamin D and B12 deficiency, HTN, HLD, BPH, depression, ITP, BPPV, and migraines presenting d/t dizziness UTI with sepsis Initially patient presented with dizziness Now appears to be more tired, rather drowsy Blood pressure soft at 90/53 Urine culture growing gram-negative robert Was given a dose of IV ceftriaxone in the emergency room yesterday White count is slightly worse from 11,000-12,000 Will treat him aggressively with IV fluid bolus Transfer to PCU for closer supervision and cardiac monitoring Broaden antibiotic coverage from IV ceftriaxone to IV meropenem while waiting for urine culture results Monitor on telemetry Patient has a history of BPH and has been having frequent urination lately Symptoms of dizziness could have been a result of the sepsis and UTI Hold meclizine, cyclobenzaprine, amitriptyline Metabolic encephalopathy Patient appears to be slightly drowsy and confused Most likely secondary to the UTI and sepsis Monitor clinically Hold meclizine, cyclobenzaprine, amitriptyline N.p.o. until more awake BPPV - pt follows with neuro for essential tremor, migraines, and vertigo - head CT neg, brain MRI w/o change from prior in 2017; CTA neg for PE - orthostatic VS WNL -BPV could be playing a role but at this time patient is septic Will address once sepsis resolved Hx of migraines - continue tylenol BPH - continue home dutasteride CAD, hx of [place] - stable, trop neg - no cardiac concerns upon admission - continue home aspirin, plavix, metoprolol 100 mg Hold losartan in the setting of sepsis HTN - continue home regimen as above Blood pressure is rather low Hold losartan HLD - pt on praluent at home (q14day injections) - pt due on Oct 23 Depression -Hold home paroxetine 20 mg ITP - chronic, stable - platelets 220 upon admission Code: full Dispo: Transfer to PCU DVT prophylaxis: Lovenox (8) UTI (urinary tract infection): Admission and Anticipated Discharge Date Admission Date: October 20, 2023 Subjective Patient appears restless. He tried to reach for the urinal and move his stable. He got winded when he tried to do. When I walked into the room, he appeared very tired and winded. I came back to revisit the patient hours later and to talk to his at the bedside. This time he appeared more calm but slept most of the time during my encounter. Review of Systems Review of Systems: All systems reviewed & are unremarkable except as noted in Subjective Physical Exam Physical Exam: General: Initially restless but now appears calm. Smiled. Sick appearing Heart: S1, S2/regular rate and rhythm, no murmur rubs or gallops Lungs: Clear to auscultation bilaterally. Normal effort Abdomen: Soft/nontender/nondistended. No hepatosplenomegaly Extremities: No clubbing/cyanosis. No edema Behavior: Appropriate, cooperative Results & Data Results & Data Vital Signs (Past 12 Hours) Vital Signs Temp Pulse Resp BP Pulse Ox O2 Del Method 10/21/23 14:21 90/53 L 10/21/23 14:11 36.7 C 87 16 88/54 L 94 Room Air 10/21/23 11:00 36.7 C 100 H 18 123/68 98 Room Air 10/21/23 07:39 36.8 C 75 20 108/68 96 Room Air 10/21/23 07:19 36.4 C L 66 16 134/77 96 Room Air Laboratory Results Abnormal lab results 10/20/23 10/20/23 10/21/23 Range/Units 15:15 19:55 07:22 WBC 11.39 H 12.12 H (4.8-10.8) K/ul RBC 4.35 L (4.70-6.10) M/uL Hgb 13.5 L (14.0-18.0) g/dl Hct 41.4 L (42.0-52.0) % RDW Std Deviation 50.0 H 51.0 H (36.4-46.3) fL RDW Coeff of Sae 14.6 H (11.5-14.5) % Neut # (Auto) 7.29 H (1.40-6.50) K/uL [place] # (Auto) 0.97 H (0.11-0.59) K/uL Glucose 103 H 123 H (70-99(Fasting)) mg/dl Urine Appearance Turbid A (Clear) Urine pH 8.0 H (4.5-7.5) Urine Protein Trace H (Negative) Urine Blood Trace H (Negative) Urine Nitrite Positive A (Negative) Ur Leukocyte Esterase 3+ H (Negative) Urine WBC (Auto) >30 H (0-5) /hpf U Epithel Cells (Auto) 10-20 H (0-5) /lpf Urine Bacteria (Auto) 1+ H (Negative) Diagnostic Findings Head CT 10/20/23 15:07 CT head/brain wo con CLINICAL HISTORY: headache, dizziness Technique: Contiguous axial CT images of the head were acquired from the base of the skull to the vertex without intravenous contrast administration. Images were viewed in brain, subdural and bone windows. Automated dose lowering techniques and/or adjustment according to patient size were utilized for this exam. Comparison: Comparison is made to CT head 11/19/2015 Findings: Areas of decreased attenuation are present in the periventricular and subcortical white matter bilaterally consistent with small vessel ischemic disease. Generalized cerebral atrophy with commensurate enlargement of the ventricles, sulci, and cisterns is also present. There is no acute intracranial hemorrhage or evidence of acute territorial infarction. No shift of the midline structures, mass effect, or extra-axial abnormalities are shown. Atherosclerotic calcifications are present in the intracranial segments of the internal carotid arteries. Imaged portions of the paranasal sinuses and mastoid air cells are clear. The orbits appear normal. There are no acute fractures of the calvaria or scalp swelling. Impression: No acute intracranial hemorrhage, no evidence of acute territorial infarction or other acute intracranial disease process. ACT 112: Negative or not required by law. Electronically signed by: Steven Myers M.D. 10/20/2023 3:44 PM Chest X-Ray 10/20/23 15:11 XR chest 1V not portable HISTORY: 77 years-old Male shortness of breath, dizziness COMPARISON: 09/05/2022 TECHNIQUE: PA view of the chest FINDINGS: Cardiomediastinal and hilar silhouettes are within normal limits. There is no pneumothorax, pleural effusion or airspace consolidation. The bones of the chest appear grossly intact. IMPRESSION: No acute process. ACT 112: Negative or not required by law. The above report was generated using voice recognition software. It may contain grammatical, syntax or spelling errors. Electronically signed by: Bubba Chan M.D. 10/20/2023 4:04 PM Brain MRI 10/20/23 18:26 Exam(s): MRI HEAD Without Contrast EXAM: MR Head Without Intravenous Contrast CLINICAL HISTORY: weakness; dizziness. TECHNIQUE: Magnetic resonance images of the head/brain without intravenous contrast in multiple planes. COMPARISON: MRI with and without contrast dated 01/30/2017 FINDINGS: Brain: Diffusion-weighted imaging is negative for acute or subacute infarct. There are a few punctate areas of abnormal T2 signal in the deep cerebral white matter most consistent with mild small vessel ischemic/degenerative changes. The cerebral and cerebellar sulci are mildly prominent consistent with mild brain atrophy. The expected midline structures are stable in appearance on sagittal imaging when compared to the previous examination. No hemorrhage. Ventricles: Unremarkable. No ventriculomegaly. Bones/joints: Unremarkable. No acute fracture. Sinuses: Unremarkable as visualized. No acute sinusitis. Mastoid air cells: Unremarkable as visualized. No mastoid effusion. Orbits: Unremarkable as visualized. IMPRESSION: No evidence of acute or subacute infarct. No significant alteration from the previous examination. Electronically signed by: Heriberto Wilde MD 10/20/23 20:14 PM Chest CTA 10/20/23 20:19 Exam(s): CTA CHEST IV Amt: 114 ml optiray 320 EXAM: CT Angiography Chest With Intravenous Contrast CLINICAL HISTORY: PE; dizziness; SOB with exertion. TECHNIQUE: Axial computed tomographic angiography images of the chest with intravenous contrast. CTDI is 36 mGy and DLP is 723.31 mGy-cm. Automated exposure control was utilized for the study. A dose lowering technique was utilized adhering to the principles of ALARA. MIP reconstructed images were created and reviewed. COMPARISON: No relevant prior studies available. FINDINGS: Limitations: There is respiratory artifact, which degrades image quality on multiple image slices. Pulmonary arteries: Accounting for mild respiratory artifact, there is no evidence for pulmonary embolism. Aorta: The unenhanced thoracic aorta demonstrates atherosclerotic calcification. No enlargement. Lungs: Dependent subsegmental changes noted involving both lungs with expiratory lung volumes. No focal airspace consolidation. Pleural space: Unremarkable. No significant effusion. No pneumothorax. Heart: Cardiac chambers are borderline prominent. Prominent coronary artery calcification is of uncertain clinical significance in patients of this age group. No pericardial effusion. Bones/joints: No acute fracture. No dislocation. Soft tissues: Unremarkable. Lymph nodes: Unremarkable. No enlarged lymph nodes. IMPRESSION: 1. Accounting for mild respiratory artifact, there is no evidence for pulmonary embolism. 2. Dependent subsegmental presumed atelectatic changes noted involving both lungs with expiratory lung volumes. No focal airspace consolidation. No pleural effusion or pneumothorax. Electronically signed by: Heriberto Wilde MD 10/20/23 22:17 PM PG Care Time/CCT Total # of Minutes Spent Total Time Spent with Patient: Total time spent is greater than 50% in coordination of care (as documented) at patient's floor/unit and/or counseling patient: Coding Level of Care Code 34920 SUB INP/OBS CARE 2/35MIN Diagnoses Arteriosclerotic cardiovascular disease I25.10 Depression F32.9 Hyperlipidemia E78.5 Hypertension I10 Immune thrombocytopenia D69.3 Essential tremor G25.0 BPPV (benign paroxysmal positional vertigo) H81.10 UTI (urinary tract infection) N39.0
[2023-10-21] MEDS: MEROPENEM 500 MG in SYRINGE 0 ML IV SCH ×2 (15:16→20:58)
[2023-10-21] MEDS: ASPIRIN 81 MG ECTAB PO SCH (20:58)
[2023-10-21] MEDS: FAMOTIDINE 20 MG TAB PO SCH (20:58)
[2023-10-22] MEDS: SODIUM CHLORIDE 0.9% 1,000 ML IV SCH ×4 (02:47→21:04)
[2023-10-22] MEDS: MEROPENEM 500 MG in SYRINGE 0 ML IV SCH ×2 (03:51→07:37)
[2023-10-22 06:49] LABS: Hemoglobin 11.1 g/dl (14.0-18.0); Mean Corpuscular Hemoglobin 31.6 pg (25.0-34.0); Mean Corpuscular Hgb Conc 33.6 g/dL (32.0-36.0); Mean Platelet Volume 11.1 fL (9.4-12.4); Platelet Count 138 K/uL (130-400); RDW Coefficient of Variation 15.1 % (11.5-14.5); Red Blood Count 3.51 M/uL (4.70-6.10); White Blood Count 12.96 K/ul (4.8-10.8)
[2023-10-22 07:32] LABS: Calcium 8.1 mg/dl (8.6-10.3)
[2023-10-22] MEDS: CLOPIDOGREL BISULFATE 75 MG TAB PO SCH (07:35)
[2023-10-22] MEDS: ENOXAPARIN INJ 40 MG/0.4 ML SYR SQ SCH (07:35)
[2023-10-22] MEDS: FINASTERIDE 5 MG TAB PO SCH (07:35)
[2023-10-22] MEDS: MAGNESIUM OXIDE 400 MG TAB PO SCH (07:36)
[2023-10-22 07:38] LABS: BUN Creatinine Ratio 12.9 (10-20); Creatinine Clr Calc Pharmacy 58.7 ml/min; Est GFR (African American) 69.5 ml/min
[2023-10-22] MEDS: cefTRIAXone SODIUM 2,000 MG in DEXTROSE 5 % MINI-B 50 ML IV SCH (10:52)
[2023-10-22] MEDS: METOPROLOL SUCC 50MG EXT REL TAB PO SCH (10:54)
[2023-10-22] MEDS ORDERED: SODIUM CHLORIDE 0.9% 500 ML IV ONE (14:21)
--- NOTE | 2023-10-22 14:26 | Hospitalist Progress Note ---
Date of Service October 22, 2023 Assessment & Plan (1) Arteriosclerotic cardiovascular disease: (2) Depression: (3) Hyperlipidemia: (4) Hypertension: (5) Immune thrombocytopenia: (6) Essential tremor: (7) BPPV (benign paroxysmal positional vertigo): Plan: Pt is a 77 yo male with PMH of essential tremor, [place] s/p stenting (1996), vitamin D and B12 deficiency, HTN, HLD, BPH, depression, ITP, BPPV, and migraines presenting d/t dizziness UTI with sepsis/septic shock Initially patient presented with dizziness Blood pressure soft initially, dropped further requiring IV fluid boluses Was transferred to PCU for closer supervision and cardiac monitoring Urine culture growing pansensitive E. coli Blood culture was not drawn on admission Today doing significantly better. Mental status back to baseline Feeling better overall Switched to ceftriaxone IV Not feeling dizzy anymore Blood pressure still remains soft. Will give another 500 cc bolus Metabolic encephalopathy Resolved BPPV - pt follows with neuro for essential tremor, migraines, and vertigo - head CT neg, brain MRI w/o change from prior in 2017; CTA neg for PE - orthostatic VS WNL Hx of migraines - continue tylenol BPH - continue home dutasteride CAD, hx of [place] - stable, trop neg - no cardiac concerns upon admission - continue home aspirin, plavix, metoprolol 100 mg Hold losartan in the setting of sepsis HTN - continue home regimen as above Blood pressure is rather low Hold losartan Metoprolol continued with holding parameters HLD - pt on praluent at home (q14day injections) - pt due on Oct 23. Will order tomorrow Depression -Hold home paroxetine 20 mg ITP - chronic, stable Code: full DVT prophylaxis: Lovenox Spoke to on the phone (8) UTI (urinary tract infection): Admission and Anticipated Discharge Date Admission Date: October 20, 2023 Subjective Patient says that he is feeling much better. He is not dizzy today. Review of Systems Review of Systems: All systems reviewed & are unremarkable except as noted in Subjective Physical Exam Physical Exam: General: Awake, conversant. Calm and composed today. Heart: S1, S2/regular rate and rhythm, no murmur rubs or gallops Lungs: Clear to auscultation bilaterally. Normal effort Abdomen: Soft/nontender/nondistended. No hepatosplenomegaly Extremities: No clubbing/cyanosis. No edema Behavior: Appropriate, cooperative Results & Data Results & Data Vital Signs (Past 12 Hours) Vital Signs Temp Pulse Pulse Resp BP Pulse Ox O2 Del Method 10/22/23 11:43 36.5 C 68 18 91/58 L 97 Room Air 10/22/23 10:52 93/58 L 10/22/23 08:00 60 10/22/23 07:34 36.6 C 70 18 103/62 94 Room Air 10/22/23 02:59 36.5 C 63 18 117/68 96 Room Air Laboratory Results Abnormal lab results 10/22/23 Range/Units 05:47 WBC 12.96 H (4.8-10.8) K/ul RBC 3.51 L (4.70-6.10) M/uL Hgb 11.1 L (14.0-18.0) g/dl Hct 33.0 L (42.0-52.0) % RDW Std Deviation 52.0 H (36.4-46.3) fL RDW Coeff of Sae 15.1 H (11.5-14.5) % Chloride 112 H (98-107) mmol/L Calcium 8.1 L (8.6-10.3) mg/dl PG Care Time/CCT Total # of Minutes Spent Total Time Spent with Patient: Total time spent is greater than 50% in coordination of care (as documented) at patient's floor/unit and/or counseling patient: Coding Level of Care Code 76848 SUB INP/OBS CARE 2/35MIN Diagnoses Arteriosclerotic cardiovascular disease I25.10 Depression F32.9 Hyperlipidemia E78.5 Hypertension I10 Immune thrombocytopenia D69.3 Essential tremor G25.0 BPPV (benign paroxysmal positional vertigo) H81.10 UTI (urinary tract infection) N39.0
[2023-10-22] MEDS: ASPIRIN 81 MG ECTAB PO SCH (21:04)
[2023-10-22] MEDS: FAMOTIDINE 20 MG TAB PO SCH (21:04)
[2023-10-23] MEDS: SODIUM CHLORIDE 0.9% 1,000 ML IV SCH (04:54)
[2023-10-23 06:45] LABS: Hematocrit (blood only) 31.9 % (42.0-52.0); Hemoglobin 10.3 g/dl (14.0-18.0); Mean Corpuscular Hemoglobin 30.7 pg (25.0-34.0); Mean Corpuscular Hgb Conc 32.3 g/dL (32.0-36.0); Mean Corpuscular Volume 95.2 fL (80.0-100.0); Mean Platelet Volume 11.2 fL (9.4-12.4); Platelet Count 120 K/uL (130-400); RDW Coefficient of Variation 14.8 % (11.5-14.5); RDW Standard Deviation 51.9 fL (36.4-46.3); Red Blood Count 3.35 M/uL (4.70-6.10); White Blood Count 6.91 K/ul (4.8-10.8)
[2023-10-23 06:58] LABS: BUN Creatinine Ratio 12.2 (10-20); Calcium 7.9 mg/dl (8.6-10.3); Est GFR (African American) 94.5 ml/min; Est GFR (Non-African American) 81.5 ml/min; Potassium 3.9 mmol/L (3.5-5.1)
[2023-10-23] MEDS: MAGNESIUM OXIDE 400 MG TAB PO SCH (07:48)
[2023-10-23] MEDS: FINASTERIDE 5 MG TAB PO SCH (07:48)
[2023-10-23] MEDS: CLOPIDOGREL BISULFATE 75 MG TAB PO SCH (07:49)
[2023-10-23] MEDS: ENOXAPARIN INJ 40 MG/0.4 ML SYR SQ SCH (07:49)
[2023-10-23] MEDS: METOPROLOL SUCC 50MG EXT REL TAB PO SCH (07:49)
[2023-10-23] MEDS: cefTRIAXone SODIUM 2,000 MG in DEXTROSE 5 % MINI-B 50 ML IV SCH (09:20)
[2023-10-23] MEDS ORDERED: [UNRECOGNIZED DRUG - REMARK] STA (15:16)
--- NOTE | 2023-10-23 15:47 | Hospitalist Progress Note ---
Date of Service October 23, 2023 Assessment & Plan (1) Arteriosclerotic cardiovascular disease: (2) Depression: (3) Hyperlipidemia: (4) Hypertension: (5) Immune thrombocytopenia: (6) Essential tremor: (7) BPPV (benign paroxysmal positional vertigo): Plan: Pt is a 77 yo male with PMH of essential tremor, [place] s/p stenting (1996), vitamin D and B12 deficiency, HTN, HLD, BPH, depression, ITP, BPPV, and migraines presenting d/t dizziness UTI with sepsis/septic shock Initially patient presented with dizziness Blood pressure soft initially, dropped further requiring IV fluid boluses Was transferred to PCU for closer supervision and cardiac monitoring Urine culture growing pansensitive E. coli Blood culture was not drawn on admission Today doing significantly better. Mental status back to baseline Feeling better overall On ceftriaxone IV. Will switch to p.o. Keflex tomorrow Not feeling dizzy anymore Blood pressure stable today Metabolic encephalopathy Resolved BPPV - pt follows with neuro for essential tremor, migraines, and vertigo - head CT neg, brain MRI w/o change from prior in 2017; CTA neg for PE - orthostatic VS WNL Hx of migraines - continue tylenol BPH - continue home dutasteride CAD, hx of [place] - stable, trop neg - no cardiac concerns upon admission - continue home aspirin, plavix, metoprolol 100 mg Resume losartan tomorrow HTN - continue home regimen as above Blood pressure stable today Resume losartan tomorrow Metoprolol continued with holding parameters HLD - pt on praluent at home (q14day injections) -Ordered Praluent Depression -Hold home paroxetine 20 mg ITP - chronic, stable Code: full DVT prophylaxis: Lovenox Spoke to on the phone Likely discharge tomorrow (8) UTI (urinary tract infection): Admission and Anticipated Discharge Date Admission Date: October 22, 2023 Subjective Patient is feeling well today. Denies chest pain or shortness of breath. No dizziness. Review of Systems Review of Systems: All systems reviewed & are unremarkable except as noted in Subjective Physical Exam Physical Exam: General: Awake, conversant. Calm and composed today. Heart: S1, S2/regular rate and rhythm, no murmur rubs or gallops Lungs: Clear to auscultation bilaterally. Normal effort Abdomen: Soft/nontender/nondistended. No hepatosplenomegaly Extremities: No clubbing/cyanosis. No edema Behavior: Appropriate, cooperative Results & Data Results & Data Vital Signs (Past 12 Hours) Vital Signs Temp Pulse Pulse Resp BP BP Pulse Ox 10/23/23 11:18 36.5 C 72 20 126/74 98 10/23/23 08:01 55 L 10/23/23 07:07 36.8 C 74 18 124/78 95 O2 Del Method 10/23/23 11:18 Room Air 10/23/23 08:01 10/23/23 07:07 Room Air Laboratory Results Abnormal lab results 10/23/23 Range/Units 05:32 RBC 3.35 L (4.70-6.10) M/uL Hgb 10.3 L (14.0-18.0) g/dl Hct 31.9 L (42.0-52.0) % RDW Std Deviation 51.9 H (36.4-46.3) fL RDW Coeff of Ase 14.8 H (11.5-14.5) % Plt Count 120 L (130-400) K/uL Chloride 115 H (98-107) mmol/L Glucose 116 H (70-99(Fasting)) mg/dl Calcium 7.9 L (8.6-10.3) mg/dl PG Care Time/CCT Total # of Minutes Spent Total Time Spent with Patient: Total time spent is greater than 50% in coordination of care (as documented) at patient's floor/unit and/or counseling patient: Coding Level of Care Code 64446 SUB INP/OBS CARE 2/35MIN Diagnoses Arteriosclerotic cardiovascular disease I25.10 Depression F32.9 Hyperlipidemia E78.5 Hypertension I10 Immune thrombocytopenia D69.3 Essential tremor G25.0 BPPV (benign paroxysmal positional vertigo) H81.10 UTI (urinary tract infection) N39.0
[2023-10-23] MEDS ORDERED: [UNRECOGNIZED DRUG - OTHER] SQ SCH (16:00)
[2023-10-23] MEDS ORDERED: ALIROCUMAB SQ SCH (16:00)
[2023-10-23] MEDS: ASPIRIN 81 MG ECTAB PO SCH (20:55)
[2023-10-23] MEDS: FAMOTIDINE 20 MG TAB PO SCH (20:55)
[2023-10-24] MEDS: ENOXAPARIN INJ 40 MG/0.4 ML SYR SQ SCH (08:06)
[2023-10-24] MEDS: FINASTERIDE 5 MG TAB PO SCH (08:07)
[2023-10-24] MEDS: MAGNESIUM OXIDE 400 MG TAB PO SCH (08:07)
[2023-10-24] MEDS: METOPROLOL SUCC 50MG EXT REL TAB PO SCH (08:07)
[2023-10-24] MEDS: CLOPIDOGREL BISULFATE 75 MG TAB PO SCH (08:07)
[2023-10-24] MEDS ORDERED: LOSARTAN POTASSIUM 50 MG TAB PO SCH (09:00)
[2023-10-24] MEDS ORDERED: LOSARTAN POTASSIUM 25 MG TAB PO SCH (09:00)
[2023-10-24] MEDS: cefTRIAXone SODIUM 2,000 MG in DEXTROSE 5 % MINI-B 50 ML IV SCH (09:37)
--- NOTE | 2023-10-24 10:12 | Discharge Summary ---
Date of Service October 24, 2023 Admission HPI Per Admitting Provider Pt is a 77 yo male with PMH of essential tremor, [place] s/p stenting (1996), vitamin D and B12 deficiency, HTN, HLD, BPH, depression, ITP, BPPV, and migraines presenting d/t syncope. Pt explains that his headaches began ~6 weeks ago while visiting family in [place]. No acute inciting event. Since then, they have been waxing/waning. However, over the past weekend they have become constant. He describes the pain as a "vice kiln puller" around his head. He has taken tylenol and amitriptyline at home with little relief. In addition to the headaches, he is also experiencing an increase in dizziness. He has a hx of vertigo but it is typically well controlled. He has taken meclizine w/o relief. He notes he feels as though he is spinning and this sensation is worse with positional changes and turning corners while walking around his house. Over the past few days, he notes SOB on exertion. This is new for him. He becomes winded when walking up stairs. He denies syncope and chest pain. Previously, his migraines have been fairly well controlled with amitriptyline. At his last neurology visit (11/2022), it was noted that he had good control over his BPPV/orthostasis symptoms. His essential tremor is slowly worsening but he does not take medications for this. In the ER, pt received 1L of NS, ceftriaxone x1, benadryl 25mg, and compazine x1 with some improvement. Admission Exam Per Admitting Provider Constitutional: well appearing, no acute distress HEENT: normocephalic, no conjunctival injection, bilateral TM clear with significant cerumen impaction on the left CV: RRR, no murmur, no LE edema Respiratory: CTA bilaterally. No rhonchi, wheezes, or crackles. No increased work of breathing GI: soft, nondistended, nontender, + bowel sounds MSK: no gross deformities noted Skin: warm, dry, no rashes Neuro: alert, oriented, no FND noted Psych: mood and affect congruent Principal Diagnosis Acute E. coli UTI with severe sepsis Discharge Exam General: Awake, conversant. Calm and composed today. Heart: S1, S2/regular rate and rhythm, no murmur rubs or gallops Lungs: Clear to auscultation bilaterally. Normal effort Abdomen: Soft/nontender/nondistended. No hepatosplenomegaly Extremities: No clubbing/cyanosis. No edema Behavior: Appropriate, cooperative Discharge Data Allergies Allergy/AdvReac Type Severity Reaction Status Date / Time lisinopril Allergy Unknown Unknown Verified 10/20/23 19:27 codeine AdvReac Severe PANIC/RESTLESS Verified 10/20/23 19:27 SLEEP Xrxaqbg-IPV-VhW Reductase AdvReac Severe Muscle Pain Verified 10/20/23 19:27 Inhibitor [Rxyyhtt-Hvp-Dnd Reductase Inhibitor] hydromorphone AdvReac U UNKNOWN Verified 10/20/23 19:27 simvastatin AdvReac U MUSCULAR Verified 10/20/23 19:27 RELATED Consultations 10/20/23 21:40 ED Decision to Admit Stat Ordered Studies 10/20/23 15:07 CT head/brain wo con Stat 10/20/23 18:26 MRI Brain [MR brain wo con] Stat 10/20/23 20:19 CT for pulmonary embolism PE [CT angio chest PE protocol] Stat Hospital Course (1) Arteriosclerotic cardiovascular disease: (2) Depression: (3) Hyperlipidemia: (4) Hypertension: (5) Immune thrombocytopenia: (6) Essential tremor: (7) BPPV (benign paroxysmal positional vertigo): Pt is a 77 yo male with PMH of essential tremor, [place] s/p stenting (1996), vitamin D and B12 deficiency, HTN, HLD, BPH, depression, ITP, BPPV, and migraines presenting d/t dizziness UTI with sepsis/septic shock Initially patient presented with dizziness Blood pressure soft initially, dropped further requiring IV fluid boluses Was transferred to PCU for closer supervision and cardiac monitoring Urine culture growing pansensitive E. coli Blood culture was not drawn on admission Today doing significantly better. Mental status back to baseline Feeling better overall Was treated with IV ceftriaxone, switched to p.o. Keflex today Not feeling dizzy anymore Blood pressure stable today Metabolic encephalopathy Resolved BPPV - pt follows with neuro for essential tremor, migraines, and vertigo - head CT neg, brain MRI w/o change from prior in 2017; CTA neg for PE - orthostatic VS WNL Resolved Symptoms were most likely related to severe sepsis and UTI Hx of migraines - continue tylenol BPH - continue home dutasteride CAD, hx of [place] - stable, trop neg - no cardiac concerns upon admission - continue home aspirin, plavix, metoprolol 100 mg Resumed losartan today HTN - continue home regimen as above Blood pressure creeping up Resumed losartan and metoprolol HLD - pt on praluent at home (q14day injections) -Got Praluent on 10/23 Depression -Hold home paroxetine 20 mg ITP - chronic, stable Code: full DVT prophylaxis: Lovenox Discharge to home today (8) UTI (urinary tract infection): Total Time Total Time Spent Total Time Spent (In Minutes): 35 Discharge Plan Discharge Items Patient Disposition: Home - Self-Care Reason For Visit: DIZZINESS, HEADACHES Discharge Diagnosis: Acute E. coli UTI with severe sepsis Activity: Resume your previous activity Non-emergency contact: Primary Care Provider Call non-emergency contact if: you have any medication questions and your symptoms worsen Follow-up/Referrals: Baltazar Serrano MD [Primary Care Provider] - 11/04/23 1:30 pm (You will be seeing Laura Panda PA-C) Diet: Heart Healthy Addtl Attending Provider Instructions: Advised to follow-up with PCP in 1 week Advised to note that you are being discharged on oral Keflex to complete the course Pending Studies at Discharge: No Stand-Alone Forms: My [facility] Medications and DC Order Prescriptions: New cephalexin 500 mg capsule 500 mg PO BID 4 Days Qty: 8 0RF Continued cyclobenzaprine 10 mg tablet 10 mg PO HS PRN (Reason: spasms) Qty: 30 1RF dutasteride [Avodart] 0.5 mg capsule 0.5 mg PO DAILY Qty: 90 3RF losartan [Cozaar] 25 mg tablet 25 mg PO DAILY Qty: 90 3RF magnesium oxide 400 mg (241.3 mg magnesium) tablet 400 mg PO DAILY Qty: 90 3RF meclizine 25 mg tablet 25 mg PO DAILY PRN (Reason: DIZZY) Qty: 90 1RF metoprolol succinate [Toprol XL] 100 mg tablet extended release 24 hr 100 mg PO DAILY Qty: 90 3RF nitroglycerin [Nitrolingual] 400 mcg/spray spray,non-aerosol 1 spray sublingual UD PRN (Reason: Chest Pain) Qty: 25 3RF Praluent Pen 150 mg/mL pen injector 150 mg subcut Q14D Qty: 4 11RF Rx Instructions: inject into abdomen, thigh, or upper arm (deltoid muscle); rotate sites clopidogrel 75 mg tablet 75 mg PO QAM Qty: 90 3RF paroxetine HCl 20 mg tablet 20 mg PO DAILY Qty: 90 3RF ondansetron 4 mg tablet,disintegrating 4 mg PO Q8H PRN (Reason: nausea and vomiting) Qty: 30 1RF cyanocobalamin (vitamin B-12) [Vitamin B-12] 1,000 mcg Tablet 1,000 mcg PO DAILY flaxseed oil 1,000 mg Capsule 2,000 mg PO QPM cholecalciferol (vitamin D3) [Vitamin D3] 1,000 unit Capsule 1,000 unit PO DAILY Prostate Health 160-100-100 mg-unit-mcg Tablet 1 tab PO DAILY coenzyme Q10 [CoQ-10] 100 mg capsule 100 mg PO DAILY riboflavin (vitamin B2) [Vitamin B-2] 100 mg tablet 100 mg PO BID aspirin [Adult Low Dose Aspirin] 81 mg tablet,delayed release (DR/EC) 81 mg PO QPM famotidine 20 mg tablet 20 mg PO QPM amitriptyline 10 mg tablet 20 mg PO HS PRN (Reason: Insomnia) Discharge Orders: Discharge Order (Routine); Ordered 10/24/23 Ordered By: Tarah Naranjo/Other Patient Handouts: Urinary Tract Infections in Men, UTIs, Sepsis, Understanding Sepsis Admission Data Admit Date/Time: 10/22/23 14:27 Attending Provider: Tarah Fritz Admit Provider: Celeste Batista Primary Care Provider: Baltazar Serrano Other Providers: Nathan Nava Other Interventions: Discharge Summary Assessment (RN) Last Done: 10/24/23 10:21 Coding Level of Care Code 83019 INP/OBS DISCH >30 MIN Diagnoses Arteriosclerotic cardiovascular disease I25.10 Depression F32.9 Hyperlipidemia E78.5 Hypertension I10 Immune thrombocytopenia D69.3 Essential tremor G25.0 BPPV (benign paroxysmal positional vertigo) H81.10 UTI (urinary tract infection) N39.0
== END 2023-10-24 12:57 | disposition home or self-care (01) | DRG 871 ==
LOC: 3W 14:59 → ED 14:59 → SUATTDRO 22:49 → 3W 23:13 → 2S 10-21 15:43

== ENCOUNTER 2024-12-31 15:04 | Inpatient (IN) ==
[2024-12-31] MEDS: ONDANSETRON INJ 2 MG/ML 2 ML VIAL IV STA ×2 (16:11→20:40)
--- NOTE | 2024-12-31 16:33 | Electrocardiogram Report ---
Test Reason : Blood Pressure : */* mmHG Vent. Rate : 111 BPM Atrial Rate : 111 BPM P-R Int : 128 ms QRS Dur : 122 ms QT Int : 268 ms P-R-T Axes : 86 78 -18 degrees QTcB Int : 364 ms Sinus tachycardia with Premature atrial complexes in a pattern of bigeminy Right bundle branch block ST depression in Anterolateral leads Abnormal ECG When compared with ECG of 19-Jul-2024 10:41, Premature atrial complexes are now Present Vent. rate has increased by [address] now depressed in Anterolateral leads T wave inversion now evident in Inferior leads T wave inversion now evident in Anterior leads Confirmed by Tariq Frankel ([id number]) on 12/31/2024 4:32:55 PM Referred By: Confirmed By: Tariq Frankel
[2024-12-31 16:37] LABS: Basophils # (auto) 0.04 K/uL (0.00-0.20); Basophils % (auto) 0.3 %; Eosinophils # (auto) 0.04 K/uL (0.00-0.50); Eosinophils % (auto) 0.3 %; Hematocrit (blood only) 47.3 % (42.0-52.0); Immature Granulocytes # (auto) 0.07 K/uL (0.01-0.20); Immature Granulocytes % (auto) 0.5 %; Lymphocytes # (auto) 1.81 K/uL (1.20-3.40); Lymphocytes % (auto) 11.8 %; Mean Corpuscular Hemoglobin 30.8 pg (25.0-34.0); Mean Corpuscular Hgb Conc 33.8 g/dL (32.0-36.0); Mean Platelet Volume 10.7 fL (9.4-12.4); Monocytes # (auto) 1.57 K/uL (0.11-0.59); Monocytes % (auto) 10.2 %; Neutrophils # (auto) 11.84 K/uL (1.40-6.50); Neutrophils % (auto) 76.9 %; Platelet Count 199 K/uL (130-400); RDW Coefficient of Variation 13.7 % (11.5-14.5); RDW Standard Deviation 45.7 fL (36.4-46.3); White Blood Count 15.37 K/ul (4.8-10.8)
[2024-12-31 16:52] LABS: Alanine Aminotransferase 31 U/L (7-52); Albumin Globulin Ratio 1.3 (0.9-2); Albumin Level 4.5 gm/dl (3.4-5.0); Alkaline Phosphatase 77 U/L (34-104); Anion Gap 12 (3-11); Aspartate Aminotransferase 23 U/L (13-39); BUN Creatinine Ratio 13.7 (10-20); Bilirubin,Total 1.6 mg/dl (0.2-1.0); Blood Urea Nitrogen 20 mg/dl (6-23); Calcium 10.7 mg/dl (8.6-10.3); Carbon Dioxide 27 mmol/L (21-32); Chloride 99 mmol/L (98-107); Globulin 3.4 gm/dl (2.5-4.0); Glucose 149 mg/dl (70-99(Fasting)); Potassium 3.7 mmol/L (3.5-5.1); Sodium 138 mmol/L (136-145); Total Protein 7.9 gm/dl (6.0-8.3)
[2024-12-31 16:59] LABS: Partial Thromboplastin Ratio 0.9; Partial Thromboplastin Time 25 Seconds (21-31); Prothrombin Time 10.9 Seconds (9.0-12.0)
[2024-12-31 17:20] LABS: Adenovirus PCR Not Detected (NotDetected); Bordetella parapertussis PCR Not Detected (NotDetected); Bordetella pertussis PCR Not Detected (NotDetected); Chlamydia pneumoniae PCR Not Detected (NotDetected); Coronavirus 229E PCR Not Detected (NotDetected); Coronavirus CoV-2 (COVID19)PCR Not Detected (NotDetected); Coronavirus HKU1 PCR Not Detected (NotDetected); Coronavirus NL63 PCR Not Detected (NotDetected); Coronavirus OC43PCR Not Detected (NotDetected); Human Metapneumovirus PCR Not Detected (NotDetected); Influenza A PCR Not Detected (NotDetected); Influenza B PCR Not Detected (NotDetected); Mycoplasma pneumoniae PCR Not Detected (NotDetected); Parainfluenza Virus 1 PCR Not Detected (NotDetected); Parainfluenza Virus 2 PCR Not Detected (NotDetected); Parainfluenza Virus 3 PCR Not Detected (NotDetected); Parainfluenza Virus 4 PCR Not Detected (NotDetected); Respiratory Syncytial VirusPCR Not Detected (NotDetected); Rhinovirus/Enterovirus PCR DETECTED (NotDetected)
[2024-12-31 17:37] LABS: Appearance Urine Clear (Clear); Bacteria Urine Automated None Seen (None Seen); Bilirubin Urine Negative (Negative); Blood Urine Trace (Negative); Cast Urine Automated 0-2 /lpf (0-2); Color Urine Yellow; Epithelial Cell Urine Auto 0-2 /hpf (0-2); Glucose Urine UA Negative (Negative); Ketones Urine 2+ (Negative); Leukocyte Esterase Urine Trace (Negative); Nitrite Urine Negative (Negative); Protein Urine 1+ (Negative); Specific Gravity Urine 1.015 (1.000-1.030); Urobilinogen Urine Negative (Negative); WBC Urine Automated 0-5 /hpf (0-5)
[2024-12-31] MEDS: OPTIRAY 320 100ml IV ONE (19:11)
[2024-12-31] MEDS: SODIUM CHLORIDE 0.9% 1,000 ML IV SCH (19:23)
[2024-12-31 19:28] LABS: Troponin I High Sensitivity 13.7 pg/ml (0-20)
--- NOTE | 2024-12-31 19:42 | CT Scan Report ---
EXAMINATION: CT of the abdomen and pelvis performed after the administration of IV contrast TECHNIQUE: Helical CT images from the lung bases through the symphysis pubis were obtained with contrast. Coronal and sagittal reformatted images were generated at a workstation for further assessment. Dose reduction techniques were achieved by using automatic exposure control and/or adjustment of mA and/or kV according to patient size and/or use of iterative reconstruction technique. COMPARISON: CT chest [address] abdomen and pelvis 16 June 2024. 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 Lung windows demonstrate bibasilar interlobular septal markings. No consolidation. Reticular nodular densities of the left lower lobe. Soft tissue windows demonstrate thickened included distal esophagus. Submucosal edematous changes are noted. This is not present on prior exams. No appreciated mass. No obstruction. Hyperdensities dependent gallbladder consistent with stones. No wall thickening or pericholecystic fluid. Subcentimeter hypodensity right kidney too small to further characterize. Mild bilateral perinephric fat stranding. This is nonspecific. Small calcification uncinate process pancreatic head. These are unchanged. No appreciated mass or ductal dilatation. Prominent wall thickness of the proximal jejunum. No mass or obstruction. No surrounding inflammatory changes. Dependent densities within the urinary bladder consistent with stones. These are present on prior exam. Prostate is enlarged similar to prior study. Mild uncomplicated large bowel diverticulosis. Appendix is within normal limits. Calcified atherosclerotic changes abdominal aorta. No aneurysmal dilatation or dissection. Remaining solid and hollow organs of the abdomen and pelvis are within normal limits. No free air or free fluid. Bone windows demonstrate degenerative changes of the spine. Chronic L2 endplate compression fracture deformities. No acute osseous process. IMPRESSION: 1. Submucosal edema of the included distal esophagus most worrisome for esophagitis. No mass or obstruction. This is incompletely evaluated on this exam. 2. Uncomplicated cholelithiasis. 3. Uncomplicated large bowel diverticulosis. 4. Urinary bladder calcified stones again noted. 5. Enlarged prostate. Correlate with clinical data. 6. Reticular nodular densities of the left pulmonary base with prominent interlobular septal markings of the included pulmonary bases. Inflammatory or infectious pneumonitis is not excluded. Electronically signed by Brett Wallace 12-31-2024 7:41 PM
[2024-12-31] MEDS: FAMOTIDINE 20MG IV PUSH 20 MG/5 ML SYR IV STA (20:40)
[2024-12-31] MEDS: METOPROLOL TARTRATE 1 MG/ML VIAL IV STA (20:40)
[2024-12-31] MEDS: METOPROLOL SUCC 50MG EXT REL TAB PO STA (21:05)
[2024-12-31] MEDS: hydrALAZINE HCL 20 MG/ML VIAL IV ONE (21:38)
--- NOTE | 2024-12-31 22:07 | History & Physical Report ---
Date of Service December 31, 2024 Assessment & Plan (1) Esophagitis: (2) Vomiting: (3) Rhinovirus: (4) Renal insufficiency: Plan 79-year-old male PMHx HTN, HLD, CAD, vitamin D and B12 deficiency, and immune thrombocytopenia presenting for vomiting started 1 day [employer]S [employer]. ED evaluation revea ls leukocytosis 15.37, stable H&H; PT/INR WNL; CMP AG 12, creatinine 1.46, glucose 149, calcium 10.7, bilirubin 1.6; lipase pending; UA with protein, ketones, RBC, but no bacteria seen; BioFire positive for entero-/rhinovirus; CXR pending; EKG sinus tach with PACs and RBBB at 109 bpm.; Provided with 1L NSS, pantoprazole 40 mg IV, and azithromycin 4 mg IV x 2, metoprolol tartrate 5 mg IV and Toprol succinate 100 p.o., hydralazine 5 mg IV, and famotidine 20 mg IV in ED. #Esophagitis/Vomiting/? Aspiration Vomiting for approximately 48 hours [employer]UR[employer]'S [employer], ? chills but no fever. 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 He does take famotidine for acid reflux. Reports that sometimes he has dysphagia, feels as though food gets stuck in his throat. H/o dizziness, on meclizine daily for, has not worsened throughout the onset of these symptoms and no vertigo currently. Has been unable to take meds po x 1-2 days due to vomiting. Suspect esophagitis, ? strictures but no history of dilation. - CBC leukocytosis 15.37, stable H&H; CMP AG 12, Cr 1.46, bilirubin 1.6; lipase 43 - CXR w/ bibasilar airspace opacities, concerning for PNA or aspiration --> Aspiration likely 2/2 to vomiting- Unasyn started - CTAP esophagitis w/o mass/obstruction, uncomplicated cholelithiasis/large bowel diverticulosis, urinary bladder calcified stone, enlarged prostate, reticular nodular density L pulmonary base prominent interlobular septal markings (inflammatory vs infectious) - Clear liquids and advance as patient tolerates - Will add IVF if not tolerating fluids - Zofran prn N/V - Start Pantoprazole 40mg IV daily + famotidine 20 mg BID IV - Speech therapy consulted - No GI consult placed at time of admission- consider consult if worsening/unable to tolerate fluids #Rhinovirus Some weakness starting since onset N/V, generalized fatigue. No known sick contacts. - CBC w/ leukocytosis 15.37; CMP AG 12 - CXR bibasilar airspace opacities, concerning for PNA or aspiration - Droplet precautions #Renal insufficiency Mild elevation in creatinine, likely 2/2 ongoing GI losses and minimal po intake. Received 1L NSS in ED. H/o BPH and incomplete emptying per urology note, 08/20/2024. - Cr 1.46 at admission - repeat AM - UA without infection - Bladder scan prn #BPH- Dutasteride #HTN/HLD/CAD with stent/statin intolerance- JUVENCIO RCA, left circumflex; losartan, aspirin, metoprolol, Praluent (12/30/2024 last dose); troponin WNL at admission. #History of ITP- Platelets 199k on admission, follows with hematology (most recent visit 12/16/2024) for observation only #Depression/Insomnia- Amitriptyline, fluoxetine #Ortho- Cyclobenzaprine (prn, muscle spasms) #Vitamin B12/D deficiency- Vitamin D3 daily, B12 daily Dispo: Admit, med/tele VTE prophylaxis: SCDs This document was dictated utilizing [employer]. Please excuse any grammatical errors that may be secondary to use of this software. Admission and Anticipated Discharge Date Admission Date: 12/31/2024 History of Present Illness Chief Complaint: Vomiting Primary Care Provider: Baltazar Serrano MD 79-year-old male PMHx HTN, HLD, CAD, vitamin D and B12 deficiency, and immune thrombocytopenia presenting for vomiting started 1 day [employer]. Patient's is present in room at time of visit homes to provide history. 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 States that he took his every 2-week injection as scheduled when on the bus trip. Patient was able to have lunch and throughout the day just stated that he felt more weak than usual and a generalized sense and not specific to 1 part of his body. When he got back on the bus, he reported some fatigue from not sleeping well the night prior. Around that time, he started to become nauseous and have episodes of vomiting which was the contents from his lunch. Continued to have emesis and his last formed emesis was around 0200 the day of arrival. From then on he has been having more liquid emesis and states that his most recent episode of emesis had some redness to it. States is having some abdominal pain that is generalized, and that at baseline he has difficulties with swallowing. 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 States he has been having more belching as well. No one around him has similar symptoms. Reports that he has had feelings that he has chills but no reported fever or feeling of feverish. Does have a little bit of chest tenderness which he believes is from vomiting forcefully as well as some acid reflux. Feels as though his hands and feet were swollen the morning of arrival. Otherwise no chest pain, SOB, palpitations, diarrhea/constipation, numbness/tingling, weakness, worsening dizziness, vertigo, tinnitus, additional URI symptoms, LUTS, or syncope. ED evaluation reveals leukocytosis 15.37, stable H&H; PT/INR WNL; CMP AG 12, creatinine 1.46, glucose 149, calcium 10.7, bilirubin 1.6; lipase pending; UA with protein, ketones, RBC, but no bacteria seen; BioFire positive for entero-/rhinovirus; CXR pending; EKG sinus tach with PACs and RBBB at 109 bpm.; Provided with 1L NSS, pantoprazole 40 mg IV, and azithromycin 4 mg IV x 2, metoprolol tartrate 5 mg IV and Toprol succinate 100 p.o., hydralazine 5 mg IV, and famotidine 20 mg IV in ED. Please see Dr. Myers's attestation for adjustments/additions to treatment plan. Allergies Allergy/AdvReac Type Severity Reaction Status Date / Time clindamycin AdvReac Intermediate severe Verified 12/31/24 20:21 diarrhea codeine AdvReac Intermediate Panic/Restless Verified 12/31/24 20:21 Sleep hydromorphone AdvReac Intermediate Panic/Restless Verified 12/31/24 20:21 Sleep simvastatin AdvReac Intermediate Muscular Verified 12/31/24 20:21 Pain/Illness Exzludu-SMB-ZmR Reductase AdvReac Intermediate Muscle Verified 12/31/24 20:21 Inhibitor Pain/Illness [Fpfediq-Okm-Tuw Reductase Inhibitor] lisinopril AdvReac Unknown Unknown Verified 12/31/24 20:21 Home Medications Medication Instructions Recorded Confirmed Type cholecalciferol (vitamin D3) 25 1,000 unit PO DAILY 03/06/19 12/31/24 History mcg (1,000 unit) capsule (Vitamin D3) cyanocobalamin (vitamin B-12) 1,000 mcg PO DAILY 03/06/19 12/31/24 History 1,000 mcg tablet (Vitamin B-12) flaxseed oil 1,000 mg capsule 2,000 mg PO QPM 03/06/19 12/31/24 History saw palm 160 mg-vit E 100 1 tab PO DAILY 03/06/19 12/31/24 History unit-selen 100 ufw-iwzp-qmeoyc-pygeum tablet (Prostate Health) coenzyme Q10 100 mg capsule 100 mg PO DAILY 05/10/19 12/31/24 History (CoQ-10) riboflavin (vitamin B2) 100 mg 100 mg PO BID 03/21/21 12/31/24 History tablet (Vitamin B-2) ondansetron 4 mg disintegrating 4 mg PO Q8H PRN nausea and 01/21/22 12/31/24 Rx tablet vomiting #30 tabs cyclobenzaprine 10 mg tablet 10 mg PO HS PRN spasms #30 tabs 03/18/23 12/31/24 Rx nitroglycerin 400 mcg/spray 1 spray sublingual UD PRN Chest 08/27/23 12/31/24 Rx translingual (Nitrolingual) Pain #25 grams aspirin 81 mg tablet,delayed 81 mg PO QPM 10/20/23 12/31/24 History release (Adult Low Dose Aspirin) alirocumab 150 mg/mL subcutaneous 150 mg subcut Q14D #4 mL 08/12/24 12/31/24 Rx pen injector (Praluent Pen) magnesium oxide 400 mg (241.3 mg 400 mg PO DAILY #90 tabs 09/13/24 12/31/24 Rx magnesium) tablet metoprolol succinate 100 mg 100 mg PO QAM #90 tabs 09/13/24 12/31/24 Rx tablet,extended release 24 hr (Toprol XL) dutasteride 0.5 mg capsule 0.5 mg PO QAM #90 caps 09/14/24 12/31/24 Rx (Avodart) famotidine 20 mg tablet 20 mg PO QPM #90 tabs 09/14/24 12/31/24 Rx losartan 25 mg tablet (Cozaar) 12.5 mg (1/2 x 25 mg) PO QAM #90 09/14/24 12/31/24 Rx tabs amitriptyline 10 mg tablet 20 mg (2 x 10 mg) PO HS PRN 10/27/24 12/31/24 Rx Insomnia #60 tabs fluoxetine 10 mg capsule (Prozac) 10 mg PO QAM #90 caps 10/27/24 12/31/24 Rx meclizine 25 mg tablet 25 mg PO DAILY PRN DIZZY #90 tabs 10/27/24 12/31/24 Rx Past Med/Surg History Problem List Renal insufficiency Rhinovirus Vomiting Esophagitis Degenerative cervical spinal stenosis Chronic headaches Bladder calculi Recurrent UTI Medial meniscus tear Incomplete bladder emptying BPH loc w urin obs/LUTS Elevated PSA Urinary symptom or sign 07/06/24 Imbalance 06/03/24 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 UTI (urinary tract infection) 10/20/23 BPPV (benign paroxysmal positional vertigo) Acute UTI (urinary tract infection) (Acute) 10/20/23 Dizziness (Acute) 10/20/23 Essential tremor Hand pain 05/26/23 Bilateral tinnitus Lumbar pain Trochanteric bursitis, left hip Hyperglycemia Pes anserinus bursitis of right knee Mixed conductive and sensorineural hearing loss of right ear with restricted hearing of left ear Perimeniscal cyst of right knee Tear of meniscus of right knee Instability of right knee joint Right knee pain Right shoulder pain Myalgia due to statin Statin intolerance Presence of drug-eluting stent in right coronary artery Antiplatelet or antithrombotic long-term use Presence of stent in left circumflex coronary artery Vitamin D deficiency (Acute) Vitamin B12 deficiency (Acute) Laryngopharyngeal reflux (Acute) Immune thrombocytopenia (Acute) Hypertension (Acute) Hyperlipidemia (Acute) History of elevated prostate specific antigen (PSA) Depression (Acute) Asymmetrical left sensorineural hearing loss (Acute) Arteriosclerotic cardiovascular disease (Acute) Medical History GERD (gastroesophageal reflux disease) controlled, stable per pt Chronic ITP (idiopathic thrombocytopenia) follows with CCP CAD (coronary artery disease) x 4 stents last 2020 Dizziness Sensorineural hearing loss (SNHL) of both ears Bilateral Hearing Aids Medial meniscus tear Right Imbalance [facility] [place] - upcoming Brain MRI 07/23/24-denies recent fall hitting head Hypertension controlled, stable per pt Hyperlipidemia Essential tremor [facility] [place] - upcoming Brain MRI 07/23/24 Headache [facility] [place] - upcoming Brain MRI 07/23/24 Depression BPPV (benign paroxysmal positional vertigo) [facility] [place] - upcoming Brain MRI 07/23/24 BPH loc w urin obs/LUTS History of anticoagulant therapy d/c from plavix - 81mg aspirin only Left hip pain History of renal insufficiency syndrome Surgical History Hx of prostate biopsy Hx of colonoscopy S/P coronary artery stent placement x4 as per patient [facility] History of cardiac catheterization x2 Total of 4 stents as per patient - [facility] History of Cardiac Cath Lesion 1, Adjunct Treat Device: Stent History of percutaneous transluminal coronary angioplasty "History of Elective Transluminal Coronary Angioplasty" on CCD History of dental surgery Dental Implants History of knee surgery Right Family History Father Heart disease Myocardial infarction Mother Cancer Brain tumor Daughter Breast cancer Uncle Myocardial infarction Other No pertinent family history Denies family history of Colon cancer Ovarian cancer Prostate cancer Social History Smoking Status: Former smoker Tobacco Type: Cigarettes Age Started Using Tobacco: 15; Age Quit Using Tobacco: 38; packs per day: 1; Second Hand Exposure: No; Do You Dip or Chew Tobacco: No; Hx Alcohol Use: Yes Alcohol type: beer and wine Alcohol type Comment: Social Hx Substance Use: No Preferred Language: Lithuanian Communication Ability: Effective Visual Impairment: No Limitations Hearing Ability: Normal Miller Head Wet Process Required: No Beliefs That Will Affect Care: None marital status: marital status details: Current Living Situation: Spouse current occupational status: retired Feels Safe at Home: Yes Dental Care, Regularly: Yes Physical Activity Frequency: 3-4 Times per Week Physical Activity Frequency Comment: abs, light weights, gardening, wlaking Seatbelt Use: always Sunscreen Use: Yes Assistive Devices: Glasses, Hearing Aid - Bilateral and Other Review of Systems Review of Systems: All systems reviewed & are unremarkable except as noted in HPI & below Physical Exam Physical Exam: General: No acute distress Skin: Warm and dry Head: Normocephalic, atraumatic Eyes: PERRL, conjunctivae clear, sclera non-icteric ENT: External ear and ear canal without swelling; nose atraumatic; good dentition, tongue normal appearance, pharynx normal Neck: Supple, no LAD Cardio: tachycardia, regular rhythm, no M/G/R, S1 and S2 normal Resp: No respiratory distress, Lungs CTA in all lobes bilaterally, no wheezes, rales, or rhonchi Abdomen: Soft, symmetric, nontender; No masses or hepatosplenomegaly; Bowel sounds normoactive MSK: No deformities; pulses palpable and equal; trace pitting edema BLE to ankles, no edema appreciated in bilateral hands. Neuro: Awake, alert; Sensation intact bilaterally; CN grossly intact Psych: Appropriate mood and affect; good judgement and insight. present in room at time of visit. Results & Data Results & Data Vital Signs (Past 12 Hours) Vital Signs Temp Pulse Pulse Resp BP BP Pulse Ox 12/31/24 21:17 98 H 18 174/121 H 98 12/31/24 21:04 97 H 195/113 H 12/31/24 20:40 117 H 184/110 H 12/31/24 19:26 108 H 17 97 12/31/24 19:26 108 H 19 175/108 H 97 12/31/24 19:25 112 H 12/31/24 15:30 36.7 C 54 L 20 142/77 H 99 O2 Del Method 12/31/24 21:17 Room Air 12/31/24 21:04 12/31/24 20:40 12/31/24 19:26 Room Air 12/31/24 19:26 Room Air 12/31/24 19:25 12/31/24 15:30 Room Air Laboratory Results 12/31/24 12/31/24 17:23 16:08 WBC 15.37 H RBC 5.20 Hgb 16.0 Hct 47.3 MCV 91.0 MCH 30.8 MCHC 33.8 RDW Std Deviation 45.7 RDW Coeff of Sae 13.7 Plt Count 199 MPV 10.7 Immature Gran % (Auto) 0.5 Neut % (Auto) 76.9 Lymph % (Auto) 11.8 Appling % (Auto) 10.2 Eos % (Auto) 0.3 Baso % (Auto) 0.3 Neut # (Auto) 11.84 H Lymph # (Auto) 1.81 Appling # (Auto) 1.57 H Eos # (Auto) 0.04 Baso # (Auto) 0.04 Immature Gran # (Auto) 0.07 PT 10.9 INR 1.0 APTT 25 PTT Ratio 0.9 Sodium 138 Potassium 3.7 Chloride 99 Carbon Dioxide 27 Anion Gap 12 H BUN 20 Creatinine 1.46 H Est Cr Clr Drug Dosing Not Reportable eGFR 48.31 BUN/Creatinine Ratio 13.7 Glucose 149 H Calcium 10.7 H Total Bilirubin 1.6 H AST 23 ALT 31 Alkaline Phosphatase 77 Troponin I High Sens 13.7 Total Protein 7.9 Albumin 4.5 Globulin 3.4 Albumin/Globulin Ratio 1.3 Urine Color Yellow Urine Appearance Clear Urine pH 8.0 H Ur Specific Dunn 1.015 Urine Protein 1+ H Urine Glucose (UA) Negative Urine Ketones 2+ H Urine Blood Trace H Urine Nitrite Negative Urine Bilirubin Negative Urine Urobilinogen Negative Ur Leukocyte Esterase Trace H Urine WBC (Auto) 0-5 Urine RBC (Auto) 6-10 H U Hyaline Cast (Auto) 0-2 U Epithel Cells (Auto) 0-2 Urine Bacteria (Auto) None Seen Adenovirus (PCR) Not Detected B. pertussis DNA (PCR) Not Detected B.parapertussis DNA PCR Not Detected C. pneumoniae DNA (PCR) Not Detected Coronavirus OC43 (PCR) Not Detected Coronavirus HKU1 (PCR) Not Detected Coronavirus 229E (PCR) Not Detected SARS-CoV-2 (PCR) Not Detected Coronavirus NL63 (PCR) Not Detected Human Metapneumovir PCR Not Detected Influenza Type A (PCR) Not Detected Influenza Type B (PCR) Not Detected M. pneumoniae (PCR) Not Detected Parainfluenza 1 (PCR) Not Detected Parainfluenza 2 (PCR) Not Detected Parainfluenza 3 (PCR) Not Detected Parainfluenza 4 (PCR) Not Detected RSV (PCR) Not Detected Entero/Rhino (PCR) DETECTED A Diagnostic Findings Abdomen/Pelvis CT 12/31/24 19:02 EXAMINATION: CT of the abdomen and pelvis performed after the administration of IV contrast TECHNIQUE: Helical CT images from the lung bases through the symphysis pubis were obtained with contrast. Coronal and sagittal reformatted images were generated at a workstation for further assessment. Dose reduction techniques were achieved by using automatic exposure control and/or adjustment of mA and/or kV according to patient size and/or use of iterative reconstruction technique. COMPARISON: CT chest [address] abdomen and pelvis 16 June 2024. HISTORY: Abdominal pain FINDINGS: [employer] film demonstrates no acute abnormality. Lung windows demonstrate bibasilar interlobular septal markings. No consolidation. Reticular nodular densities of the left lower lobe. Soft tissue windows demonstrate thickened included distal esophagus. Submucosal edematous changes are noted. This is not present on prior exams. No appreciated mass. No obstruction. Hyperdensities dependent gallbladder consistent with stones. No wall thickening or pericholecystic fluid. Subcentimeter hypodensity right kidney too small to further characterize. Mild bilateral perinephric fat stranding. This is nonspecific. Small calcification uncinate process pancreatic head. These are unchanged. No appreciated mass or ductal dilatation. Prominent wall thickness of the proximal jejunum. No mass or obstruction. No surrounding inflammatory changes. Dependent densities within the urinary bladder consistent with stones. These are present on prior exam. Prostate is enlarged similar to prior study. Mild uncomplicated large bowel diverticulosis. Appendix is within normal limits. Calcified atherosclerotic changes abdominal aorta. No aneurysmal dilatation or dissection. Remaining solid and hollow organs of the abdomen and pelvis are within normal limits. No free air or free fluid. Bone windows demonstrate degenerative changes of the spine. Chronic L2 endplate compression fracture deformities. No acute osseous process. IMPRESSION: 1. Submucosal edema of the included distal esophagus most worrisome for esophagitis. No mass or obstruction. This is incompletely evaluated on this exam. 2. Uncomplicated cholelithiasis. 3. Uncomplicated large bowel diverticulosis. 4. Urinary bladder calcified stones again noted. 5. Enlarged prostate. Correlate with clinical data. 6. Reticular nodular densities of the left pulmonary base with prominent interlobular septal markings of the included pulmonary bases. Inflammatory or infectious pneumonitis is not excluded. Electronically signed by Brett Wallace 12-31-2024 7:41 PM Medications Administered NSS 1L IV Pantoprazole 40 mg IV Ondansetron 4 mg IV x 2 Heart rate 5 pings IV Metoprolol succinate 100 mg p.o. Hydralazine 5 mg IV Famotidine 20 mg IV ECG Additional Comments: Sinus tachycardia with PACs RBBB, T wave abnormality 109 bpm, WA 162, QRS 132, QT/QTc 370/498, PRT 25/62/-4 Code Status & VTE Plan Code Status Full Supervising Physician Co-Signing Physician Notes I personally saw and examined the patient. I independently reviewed the labs, EKG, imaging, problem list, medication list, past medical history and family history. I verified all ramirez points and agree with Margie Vasquez PA-C with the following exceptions and/or additions: 79-year-old male presents to the ER with intractable nausea and vomiting following a bus trip back from [place]. He notes prior to this having some dysphagia to solid foods but manages liquids fine. No acid taste in his mouth. He has longstanding vertigo for which he is taking meclizine regularly 3 times a day to limit side effects. He does not feel this current episode of nausea and vomiting is related to any room spinning sensation other than what he gets at his baseline. Vertigo started following sepsis events in September 2023. He also has chronic bilateral constant headaches which is being worked up by neurology and cardiology. Previously these have been described as migraines although he denies any official diagnosis of this and takes no prophylactic medication. O/E HS RRR, no murmurs, Chest CTAB, Abdo SNT, no nystagmus A/P Intractable nausea vomiting - appears to have been exacerbated by a bus ride therefore possibly exacerbating his chronic vertigo although given lack of room spinning sensation this may just be esophagitis. Will initially treat with PPI and H2 linh to see if this helps. Ondansetron q.4 hourly as needed for nausea/vomiting. Consider meclizine/diazepam if symptoms return. Aspiration pneumonia/pneumonitis - given increased WBC will treat as pneumonia with IV Unasyn, can be switched to Augmentin whenever N&V improve. Dysphagia - if able to tolerate liquids this can be evaluated by gastroenterology as an outpatient. Will advance diet as tolerated. Chronic vertigo - recommend avoiding meclizine scheduled and just using as needed. Consider rereferral to physical therapy for vestibular PT. Chronic headaches - recommend follow-up in headache clinic discussed with the patient PG Care Time/CCT Total # of Minutes Spent Total Time Spent with Patient: Total time spent is greater than 50% in coordination of care (as documented) at patient's floor/unit and/or counseling patient: Coding Level of Care Code 12447 INT INP/OBS CARE 3/75MIN Diagnoses Esophagitis K20.90 Vomiting R11.10 Rhinovirus B34.8 Renal insufficiency N28.9
[2024-12-31] MEDS: PANTOprazole 40 MG/10 ML SYR IV ONE (22:09)
[2024-12-31 22:35] LABS: Lipase 43 U/L (11-82)
--- NOTE | 2024-12-31 23:55 | XRay Report ---
Exam(s): XR CXR 1 VIEW EXAM: XR Chest, 1 View CLINICAL HISTORY: Reason for exam: vomiting ?PNA. TECHNIQUE: Frontal view of the chest. COMPARISON: 06/16/24 FINDINGS: Lungs: Reduced lung volumes with bronchovascular crowding. Bibasilar airspace opacities concerning for pneumonia or aspiration. Stable heart size, accentuated due to hypoventilation. Pleural space: No significant pleural effusion. No pneumothorax. Heart: No cardiomegaly or pulmonary vascular congestion. Bones/joints: No acute fracture. No dislocation. IMPRESSION: Bibasilar airspace opacities concerning for pneumonia or aspiration. Electronically signed by: Roxy Dangelo M.D. 12/31/24 23:49 PM
[2025-01-01] MEDS ORDERED: ONDANSETRON INJ 2 MG/ML 2 ML VIAL IV PRN (00:56)
[2025-01-01] MEDS ORDERED: MELATONIN 3 MG TAB PO PRN (00:56)
[2025-01-01] MEDS ORDERED: ALUMINUM/MAGNESIUM SUSP 30 ML UDC PO PRN (00:56)
[2025-01-01] MEDS ORDERED: AMITRIPTYLINE HCL 10 MG TAB PO PRN (00:56)
[2025-01-01] MEDS: FAMOTIDINE 20MG IV PUSH 20 MG/5 ML SYR IV STA (01:56)
[2025-01-01] MEDS: AMPICILLIN/SULBACTAM SOD 3,000 MG/100 ML BAG IV STA (01:58)
--- NOTE | 2025-01-01 02:27 | Emergency Department Note ---
Impression & Plan Vomiting, Rhinovirus, Esophagitis ED Provider Note CHIEF COMPLAINT: Vomiting HISTORY OF PRESENT ILLNESS: This 79-year-old male patient past medical history of CAD status post stent, hypertension, hyperlipidemia, gastric reflux, presents emergency department with complaints of epigastric abdominal pain and occasional vomiting. Patient's states 2 days ago they went on a bus trip to [place]. The patient was feeling achy and had difficulty sleeping the night before. He was able to make it through the first 2 museums however did not eat or drink much. states he had lunch at a nice restaurant and subsequently became nauseated. After several hours he began to vomit on the way home. Patient has been occasionally vomiting since then. He denies any significant chest pain, but does complain of upper abdominal pain. He states he does still have a gallbladder. He denies any previous abdominal surgeries. He denies any fevers, chills, chest pain shortness of breath. He denies any blood in the emesis. REVIEW OF SYSTEMS: A review of systems was performed with positives and pertinent negatives listed in the history of present illness. 10 systems were reviewed and are otherwise negative. ALLERGIES: see below MEDICATIONS: see below PMH: see below SOCIAL HISTORY: see below DDx: acute coronary syndrome, viral syndrome, reflux, bowel obstruction, cholecystitis, pancreatitis among others. PHYSICAL EXAM: Vital signs reviewed. noted to be hypertensive General: Elderly 79-year-old male, in some discomfort, in no significant distress. HEENT: No scleral icterus, PERRLA, neck supple. moist mucous membranes Cardiovascular: Regular rate and rhythm, no extra sounds. Pulmonary: Clear to auscultation bilaterally, normal work of breathing. Abdomen: Soft, nontender, nondistended, positive bowel sounds. Musculoskeletal: Atraumatic, no peripheral edema. Neurologic: Patient awake alert and oriented x 3, speech is clear Skin: Warm, dry, no rash EMERGENCY DEPARTMENT COURSE/MDM: This patient was evaluated and appeared to be in no significant distress. IV access was obtained and laboratory work was drawn. The patient was placed on the nuclear monitoring technician and noted to be in a sinus tachycardia. EKG reveals no evidence of acute ischemic change. Patient has noted to have a right bundle branch block. Chest x-ray was performed and reveals some bibasilar densities could be atelectasis versus aspiration. The CT imaging of the abdomen pelvis is concerning for distal esophagitis, no mass or obstruction is seen. Patient did receive IV metoprolol 5 mg, IV Zofran 4 mg. He was medicated with IV Unasyn. I suspect the patient's tachycardia and hypertension are related to beta-linh withdrawal. his oral metoprolol tartrate 100 mg was then ordered. Patient does have a WBC of 15. On my reevaluation of the patient, I did explain the findings. I suspect much of his symptoms are recurrent from his distal esophagitis. Patient's case was discussed with the hospitalist service to evaluate the patient for admission and further management. Patient will require antibiotics, IV hydration and medication management. MONITORING: An order for cardiac monitoring was placed and the patient is noted to be in a sinus tachycardia 108 beats per minute. RADIOLOGY: Chest x-ray to my interpretation reveals some by basilar densities, atelectasis versus aspiration CT imaging of the abdomen and pelvis: IMPRESSION: 1. Submucosal edema of the included distal esophagus most worrisome for esophagitis. No mass or obstruction. This is incompletely evaluated on this exam. 2. Uncomplicated cholelithiasis. 3. Uncomplicated large bowel diverticulosis. 4. Urinary bladder calcified stones again noted. 5. Enlarged prostate. Correlate with clinical data. 6. Reticular nodular densities of the left pulmonary base with prominent interlobular septal markings of the included pulmonary bases. Inflammatory or infectious pneumonitis is not excluded. EKG: to my interpretation reveals a sinus tachycardia at 109 bpm, PACs. 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 UTI (urinary tract infection) 10/20/23 BPPV (benign paroxysmal positional vertigo) Acute UTI (urinary tract infection) (Acute) 10/20/23 Dizziness (Acute) 10/20/23 Essential tremor Hand pain 05/26/23 Bilateral tinnitus Lumbar pain Trochanteric bursitis, left hip Hyperglycemia Pes anserinus bursitis of right knee Mixed conductive and sensorineural hearing loss of right ear with restricted hearing of left ear Perimeniscal cyst of right knee Tear of meniscus of right knee Instability of right knee joint Right knee pain Right shoulder pain Myalgia due to statin Statin intolerance Presence of drug-eluting stent in right coronary artery Antiplatelet or antithrombotic long-term use Presence of stent in left circumflex coronary artery Vitamin D deficiency (Acute) Vitamin B12 deficiency (Acute) Laryngopharyngeal reflux (Acute) Immune thrombocytopenia (Acute) Hypertension (Acute) Hyperlipidemia (Acute) History of elevated prostate specific antigen (PSA) Depression (Acute) Asymmetrical left sensorineural hearing loss (Acute) Arteriosclerotic cardiovascular disease (Acute) Medical History GERD (gastroesophageal reflux disease) controlled, stable per pt Chronic ITP (idiopathic thrombocytopenia) follows with CCP CAD (coronary artery disease) x 4 stents last 2020 Dizziness Sensorineural hearing loss (SNHL) of both ears Bilateral Hearing Aids Medial meniscus tear Right Imbalance [facility] [place] - upcoming Brain MRI 07/23/24-denies recent fall hitting head Hypertension controlled, stable per pt Hyperlipidemia Essential tremor s [facility] [place] - upcoming Brain MRI 07/23/24 Headache [facility] [place] - upcoming Brain MRI 07/23/24 Depression BPPV (benign paroxysmal positional vertigo) [facility] [place] - upcoming Brain MRI 07/23/24 BPH loc w urin obs/LUTS History of anticoagulant therapy d/c from plavix - 81mg aspirin only Left hip pain History of renal insufficiency syndrome Surgical History Hx of prostate biopsy Hx of colonoscopy S/P coronary artery stent placement x4 as per patient [facility] History of cardiac catheterization x2 Total of 4 stents as per patient - [facility] History of Cardiac Cath Lesion 1, Adjunct Treat Device: Stent History of percutaneous transluminal coronary angioplasty "History of Elective Transluminal Coronary Angioplasty" on CCD History of dental surgery Dental Implants History of knee surgery Right Family History Father Heart disease Myocardial infarction Mother Cancer Brain tumor Daughter Breast cancer Uncle Myocardial infarction Other No pertinent family history Denies family history of Colon cancer Ovarian cancer Prostate cancer Social History Smoking Status: Former smoker Tobacco Type: Cigarettes Age Started Using Tobacco: 15; Age Quit Using Tobacco: 38; packs per day: 1; Second Hand Exposure: No; Do You Dip or Chew Tobacco: No; Hx Alcohol Use: Yes Alcohol type: beer and wine Alcohol type Comment: Social Hx Substance Use: No Preferred Language: Kiswahili Communication Ability: Effective Visual Impairment: No Limitations Hearing Ability: Normal Back Order Clerk Required: No Beliefs That Will Affect Care: None marital status: marital status details: Current Living Situation: Spouse current occupational status: retired Feels Safe at Home: Yes Dental Care, Regularly: Yes Physical Activity Frequency: 3-4 Times per Week Physical Activity Frequency Comment: abs, light weights, gardening, wlaking Seatbelt Use: always Sunscreen Use: Yes Assistive Devices: Glasses, Hearing Aid - Bilateral and Other Allergies Allergies Allergy/AdvReac Type Severity Reaction Status Date / Time clindamycin AdvReac Intermediate severe Verified 12/31/24 20:21 diarrhea codeine AdvReac Intermediate Panic/Restless Verified 12/31/24 20:21 Sleep hydromorphone AdvReac Intermediate Panic/Restless Verified 12/31/24 20:21 Sleep simvastatin AdvReac Intermediate Muscular Verified 12/31/24 20:21 Pain/Illness Lttqtey-TEI-WnS Reductase AdvReac Intermediate Muscle Verified 12/31/24 20:21 Inhibitor Pain/Illness [Zegdeti-Asc-Bvg Reductase Inhibitor] lisinopril AdvReac Unknown Unknown Verified 12/31/24 20:21 Home Meds Home Medications Medication Instructions Recorded Confirmed cholecalciferol (vitamin D3) 25 1,000 unit PO DAILY 03/06/19 12/31/24 mcg (1,000 unit) capsule (Vitamin D3) cyanocobalamin (vitamin B-12) 1,000 mcg PO DAILY 03/06/19 12/31/24 1,000 mcg tablet (Vitamin B-12) flaxseed oil 1,000 mg capsule 2,000 mg PO QPM 03/06/19 12/31/24 saw palm 160 mg-vit E 100 1 tab PO DAILY 03/06/19 12/31/24 unit-selen 100 lhj-mclf-ivzofg-pygeum tablet (Prostate Health) coenzyme Q10 100 mg capsule 100 mg PO DAILY 05/10/19 12/31/24 (CoQ-10) riboflavin (vitamin B2) 100 mg 100 mg PO BID 03/21/21 12/31/24 tablet (Vitamin B-2) aspirin 81 mg tablet,delayed 81 mg PO QPM 10/20/23 12/31/24 release (Adult Low Dose Aspirin) Previous Rx's Medication Instructions Recorded ondansetron 4 mg disintegrating 4 mg PO Q8H PRN nausea and 01/21/22 tablet vomiting #30 tabs cyclobenzaprine 10 mg tablet 10 mg PO HS PRN spasms #30 tabs 03/18/23 nitroglycerin 400 mcg/spray 1 spray sublingual UD PRN Chest 08/27/23 translingual (Nitrolingual) Pain #25 grams alirocumab 150 mg/mL subcutaneous 150 mg subcut Q14D #4 mL 08/12/24 pen injector (Praluent Pen) magnesium oxide 400 mg (241.3 mg 400 mg PO DAILY #90 tabs 09/13/24 magnesium) tablet metoprolol succinate 100 mg 100 mg PO QAM #90 tabs 09/13/24 tablet,extended release 24 hr (Toprol XL) dutasteride 0.5 mg capsule 0.5 mg PO QAM #90 caps 09/14/24 (Avodart) famotidine 20 mg tablet 20 mg PO QPM #90 tabs 09/14/24 losartan 25 mg tablet (Cozaar) 12.5 mg (1/2 x 25 mg) PO QAM #90 09/14/24 tabs amitriptyline 10 mg tablet 20 mg (2 x 10 mg) PO HS PRN 10/27/24 Insomnia #60 tabs fluoxetine 10 mg capsule (Prozac) 10 mg PO QAM #90 caps 10/27/24 meclizine 25 mg tablet 25 mg PO DAILY PRN DIZZY #90 tabs 10/27/24 amoxicillin 875 mg-potassium 1 tab PO BID 4 days #8 tabs 01/02/25 clavulanate 125 mg tablet ondansetron 4 mg disintegrating 4 mg PO Q4H PRN nausea and 01/02/25 tablet vomiting #30 tabs Results & Data (ED) Vital Signs Vital Signs - 24 hr 12/31/24 15:30 12/31/24 19:25 12/31/24 19:26 Temperature 36.7 C Temperature Source Oral Pulse Rate 54 L 112 H Pulse Rate [Apical] 108 H Respiratory Rate 20 19 Respiratory Effort / Characteristics Non-Labored Respiratory Depth Normal Blood Pressure 142/77 H Blood Pressure [Right Arm] 175/108 H Blood Pressure Mean 98 Blood Pressure Mean [Right Arm] 130 Pulse Oximetry 99 97 Oxygen Delivery Method Room Air Room Air Sepsis Recent Fever Within 48 Hours No Sepsis New/Unexplained Change in Mental Status No Sepsis Action Taken by Nursing No Action Required 12/31/24 19:26 12/31/24 20:40 12/31/24 21:04 Temperature Temperature Source Pulse Rate 108 H 117 H 97 H Pulse Rate [Apical] Respiratory Rate 17 Respiratory Effort / Characteristics Respiratory Depth Blood Pressure 184/110 H 195/113 H Blood Pressure [Right Arm] Blood Pressure Mean Blood Pressure Mean [Right Arm] Pulse Oximetry 97 Oxygen Delivery Method Room Air Sepsis Recent Fever Within 48 Hours Sepsis New/Unexplained Change in Mental Status Sepsis Action Taken by Nursing 12/31/24 21:17 Temperature Temperature Source Pulse Rate Pulse Rate [Apical] 98 H Respiratory Rate 18 Respiratory Effort / Characteristics Respiratory Depth Blood Pressure Blood Pressure [Right Arm] 174/121 H Blood Pressure Mean Blood Pressure Mean [Right Arm] 138 Pulse Oximetry 98 Oxygen Delivery Method Room Air Sepsis Recent Fever Within 48 Hours Sepsis New/Unexplained Change in Mental Status Sepsis Action Taken by Longterm Medications Current Medication List: was personally reviewed by me Laboratory Data Attestation: I reviewed the patient's lab results. 01/02/25 05:27 01/02/25 05:27 Lab Results 12/31/24 12/31/24 Range/Units 16:08 17:23 WBC 15.37 H (4.8-10.8) K/ul RBC 5.20 (4.70-6.10) M/uL Hgb 16.0 (14.0-18.0) g/dl Hct 47.3 (42.0-52.0) % MCV 91.0 (80.0-100.0) fL MCH 30.8 (25.0-34.0) pg MCHC 33.8 (32.0-36.0) g/dL RDW Std Deviation 45.7 (36.4-46.3) fL RDW Coeff of Sae 13.7 (11.5-14.5) % Plt Count 199 (130-400) K/uL MPV 10.7 (9.4-12.4) fL Immature Gran % (Auto) 0.5 % Neut % (Auto) 76.9 % Lymph % (Auto) 11.8 % [place] % (Auto) 10.2 % Eos % (Auto) 0.3 % Baso % (Auto) 0.3 % Neut # (Auto) 11.84 H (1.40-6.50) K/uL Lymph # (Auto) 1.81 (1.20-3.40) K/uL [place] # (Auto) 1.57 H (0.11-0.59) K/uL Eos # (Auto) 0.04 (0.00-0.50) K/uL Baso # (Auto) 0.04 (0.00-0.20) K/uL Immature Gran # (Auto) 0.07 (0.01-0.20) K/uL PT 10.9 (9.0-12.0) Seconds INR 1.0 (0.9-1.1) APTT 25 (21-31) Seconds PTT Ratio 0.9 Sodium 138 (136-145) mmol/L Potassium 3.7 (3.5-5.1) mmol/L Chloride 99 (98-107) mmol/L Carbon Dioxide 27 (21-32) mmol/L Anion Gap 12 H (3-11) BUN 20 (6-23) mg/dl Creatinine 1.46 H (0.6-1.4) mg/dl Est Cr Clr Drug Dosing Not Reportable eGFR 48.31 BUN/Creatinine Ratio 13.7 (10-20) Glucose 149 H (70-99(Fasting)) mg/dl Calcium 10.7 H (8.6-10.3) mg/dl Total Bilirubin 1.6 H (0.2-1.0) mg/dl AST 23 (13-39) U/L ALT 31 (7-52) U/L Alkaline Phosphatase 77 (34-104) U/L Troponin I High Sens 13.7 (0-20) pg/ml Total Protein 7.9 (6.0-8.3) gm/dl Albumin 4.5 (3.4-5.0) gm/dl Globulin 3.4 (2.5-4.0) gm/dl Albumin/Globulin Ratio 1.3 (0.9-2) Lipase 43 (11-82) U/L Urine Color Yellow Urine Appearance Clear (Clear) Urine pH 8.0 H (4.5-7.5) Ur Specific [place] 1.015 (1.000-1.030) Urine Protein 1+ H (Negative) Urine Glucose (UA) Negative (Negative) Urine Ketones 2+ H (Negative) Urine Blood Trace H (Negative) Urine Nitrite Negative (Negative) Urine Bilirubin Negative (Negative) Urine Urobilinogen Negative (Negative) Ur Leukocyte Esterase Trace H (Negative) Urine WBC (Auto) 0-5 (0-5) /hpf Urine RBC (Auto) 6-10 H (0-2) /hpf U Hyaline Cast (Auto) 0-2 (0-2) /lpf U Epithel Cells (Auto) 0-2 (0-2) /hpf Urine Bacteria (Auto) None Seen (None Seen) Adenovirus (PCR) Not Detected (NotDetected) B. pertussis DNA (PCR) Not Detected (NotDetected) B.parapertussis DNA PCR Not Detected (NotDetected) C. pneumoniae DNA (PCR) Not Detected (NotDetected) Coronavirus OC43 (PCR) Not Detected (NotDetected) Coronavirus HKU1 (PCR) Not Detected (NotDetected) Coronavirus 229E (PCR) Not Detected (NotDetected) SARS-CoV-2 (PCR) Not Detected (NotDetected) Coronavirus NL63 (PCR) Not Detected (NotDetected) Human Metapneumovir PCR Not Detected (NotDetected) Influenza Type A (PCR) Not Detected (NotDetected) Influenza Type B (PCR) Not Detected (NotDetected) M. pneumoniae (PCR) Not Detected (NotDetected) Parainfluenza 1 (PCR) Not Detected (NotDetected) Parainfluenza 2 (PCR) Not Detected (NotDetected) Parainfluenza 3 (PCR) Not Detected (NotDetected) Parainfluenza 4 (PCR) Not Detected (NotDetected) RSV (PCR) Not Detected (NotDetected) Entero/Rhino (PCR) DETECTED A (NotDetected) Administered Medications Discontinued Medications Finasteride (Finasteride 5 Mg Tab) 5 mg PO QAM [facility] Stop: 01/31/25 08:59 Last Admin: 01/02/25 07:55 Dose: 5 mg Documented By: VONNIE Co-signed By: KARY Admin: 01/01/25 09:59 Dose: 5 mg Documented By: TYRONE Fluoxetine HCl (Fluoxetine Hcl 10 Mg Cap) 10 mg PO QAM DAVINA Stop: 01/31/25 08:59 Last Admin: 01/02/25 07:55 Dose: 10 mg Documented By: VONNIE Co-signed By: KARY Admin: 01/01/25 10:00 Dose: 10 mg Documented By: TYRONE Hydralazine HCl (Hydralazine Hcl 20 Mg/Ml Vial) 5 mg IV NOW ONE Stop: 12/31/24 21:18 Last Admin: 12/31/24 21:38 Dose: 5 mg Documented By: NICOL Sodium Chloride (Nss) 1,000 mls @ 125 mls/hr IV .Q8H [facility] Stop: 01/01/25 19:14 Last Infusion: 01/01/25 21:51 Dose: Infused Documented By: Admin: 01/01/25 12:29 Dose: 125 mls/hr Documented By: Infusion: 01/01/25 12:28 Dose: Infused Documented By: Admin: 01/01/25 03:48 Dose: 125 mls/hr Documented By: KMKyra Infusion: 01/01/25 03:48 Dose: Infused Documented By: Admin: 12/31/24 19:23 Dose: 125 mls/hr Documented By: NICOL Famotidine (Pepcid 20mg Iv Push) 20 mg in 5 mls @ 2.5 mls/min IV NOW STA Stop: 12/31/24 20:34 Last Admin: 12/31/24 20:40 Dose: 2.5 mls/min Documented By: NICOL Pantoprazole Sodium (Protonix) 40 mg in 10 mls @ 5 mls/min IV NOW ONE Stop: 12/31/24 21:55 Last Admin: 12/31/24 22:09 Dose: 5 mls/min Documented By: NICOL Ampicillin Sodium/Sulbactam Sodium (Unasyn) 3,000 mg in 100 mls @ 200 mls/hr IV Q6H [facility] Stop: 01/06/25 07:59 Last Infusion: 01/02/25 03:37 Dose: Infused Documented By: Admin: 01/02/25 02:57 Dose: 200 mls/hr Documented By: Infusion: 01/01/25 21:28 Dose: Infused Documented By: Admin: 01/01/25 20:38 Dose: 200 mls/hr Documented By: Infusion: 01/01/25 16:03 Dose: Infused Documented By: Admin: 01/01/25 15:15 Dose: 200 mls/hr Documented By: VONNIE Co-signed By: KARY Infusion: 01/01/25 10:44 Dose: Infused Documented By: Admin: 01/01/25 09:59 Dose: 200 mls/hr Documented By: TYRONE Ampicillin Sodium/Sulbactam Sodium (Unasyn) 3,000 mg in 100 mls @ 200 mls/hr IV ONE STA Stop: 01/01/25 01:21 Last Infusion: 01/01/25 02:28 Dose: Infused Documented By: Admin: 01/01/25 01:58 Dose: 200 mls/hr Documented By: NADEEM Pantoprazole Sodium (Protonix) 40 mg in 10 mls @ 5 mls/min IV DAILY [facility]INA Stop: 01/31/25 08:59 Last Admin: 01/02/25 07:56 Dose: 5 mls/min Documented By: VONNIE Co-signed By: KARY Admin: 01/01/25 10:01 Dose: 5 mls/min Documented By: TYRONE Famotidine (Pepcid 20mg Iv Push) 20 mg in 5 mls @ 2.5 mls/min IV ONE STA Stop: 01/01/25 01:00 Last Admin: 01/01/25 01:56 Dose: 2.5 mls/min Documented By: NADEEM Famotidine (Pepcid 20mg Iv Push) 20 mg in 5 mls @ 2.5 mls/min IV BID DAVINA Stop: 01/31/25 08:59 Last Admin: 01/02/25 07:57 Dose: 2.5 mls/min Documented By: VONNIE Co-signed By: KARY Admin: 01/01/25 20:49 Dose: 2.5 mls/min Documented By: Admin: 01/01/25 09:59 Dose: 2.5 mls/min Documented By: TYRONE Ioversol (Optiray 320 100ml) 90 ml IV ONCE ONE Stop: 12/31/24 19:11 Last Admin: 12/31/24 19:11 Dose: 90 ml Documented By: YANCI Losartan Potassium (Losartan Potassium 25 Mg Tab) 12.5 mg PO [facility] Stop: 01/31/25 08:59 Last Admin: 01/02/25 07:56 Dose: 12.5 mg Documented By: VONNIE Co-signed By: KILLIAN Admin: 01/01/25 10:00 Dose: 12.5 mg Documented By: TYRONE Metoprolol Succinate (Metoprolol Succ 50mg Ext Rel Tab) 100 mg PO NOW STA Stop: 12/31/24 20:34 Last Admin: 12/31/24 21:05 Dose: Not Given Documented By: NICOL Metoprolol Succinate (Metoprolol Succ 50mg Ext Rel Tab) 100 mg PO [facility] Stop: 01/31/25 08:59 Last Admin: 01/02/25 07:55 Dose: 100 mg Documented By: VONNIE Co-signed By: [facility] Admin: 01/01/25 10:01 Dose: 100 mg Documented By: TYRONE Metoprolol Tartrate (Metoprolol Tartrate 1 Mg/Ml Vial) 5 mg IV NOW STA Stop: 12/31/24 20:38 Last Admin: 12/31/24 20:40 Dose: 5 mg Documented By: NICOL Ondansetron HCl (Ondansetron Inj 2 Mg/Ml 2 Ml Vial) 4 mg IV NOW STA Stop: 12/31/24 15:39 Last Admin: 12/31/24 16:11 Dose: 4 mg Documented By: MARTA Ondansetron HCl (Ondansetron Inj 2 Mg/Ml 2 Ml Vial) 4 mg IV NOW STA Stop: 12/31/24 20:38 Last Admin: 12/31/24 20:40 Dose: 4 mg Documented By: NICOL Ondansetron HCl (Ondansetron Inj 2 Mg/Ml 2 Ml Vial) 4 mg IV Q4H PRN PRN Reason: Nausea Stop: 01/31/25 00:55 Last Admin: 01/01/25 13:11 Dose: 4 mg Documented By: JEAN Polyethylene Glycol (Polyethylene (Miralax) 17 Gm Pack) 17 gm PO DAILY PRN PRN Reason: Constipation Stop: 01/31/25 00:55 Last Admin: 01/02/25 07:54 Dose: 17 gm Documented By: VONNIE Co-signed By: [facility] Potassium Chloride (Potassium Chloride Crtab 20 Meq Tabcr) 20 meq PO NOW STA Stop: 01/01/25 08:09 Last Admin: 01/01/25 09:59 Dose: 20 meq Documented By: [facility] Imaging Data Radiologist's Impression: Abdomen/Pelvis CT 12/31/24 19:02 EXAMINATION: CT of the abdomen and pelvis performed after the administration of IV contrast TECHNIQUE: Helical CT images from the lung bases through the symphysis pubis were obtained with contrast. Coronal and sagittal reformatted images were generated at a workstation for further assessment. Dose reduction techniques were achieved by using automatic exposure control and/or adjustment of mA and/or kV according to patient size and/or use of iterative reconstruction technique. COMPARISON: CT chest [address] abdomen and pelvis 16 June 2024. HISTORY: Abdominal pain FINDINGS: Sales Assistant Institutional Sales film demonstrates no acute abnormality. Lung windows demonstrate bibasilar interlobular septal markings. No consolidation. Reticular nodular densities of the left lower lobe. Soft tissue windows demonstrate thickened included distal esophagus. Submucosal edematous changes are noted. This is not present on prior exams. No appreciated mass. No obstruction. Hyperdensities dependent gallbladder consistent with stones. No wall thickening or pericholecystic fluid. Subcentimeter hypodensity right kidney too small to further characterize. Mild bilateral perinephric fat stranding. This is nonspecific. Small calcification uncinate process pancreatic head. These are unchanged. No appreciated mass or ductal dilatation. Prominent wall thickness of the proximal jejunum. No mass or obstruction. No surrounding inflammatory changes. Dependent densities within the urinary bladder consistent with stones. These are present on prior exam. Prostate is enlarged similar to prior study. Mild uncomplicated large bowel diverticulosis. Appendix is within normal limits. Calcified atherosclerotic changes abdominal aorta. No aneurysmal dilatation or dissection. Remaining solid and hollow organs of the abdomen and pelvis are within normal limits. No free air or free fluid. Bone windows demonstrate degenerative changes of the spine. Chronic L2 endplate compression fracture deformities. No acute osseous process. IMPRESSION: 1. Submucosal edema of the included distal esophagus most worrisome for esophagitis. No mass or obstruction. This is incompletely evaluated on this exam. 2. Uncomplicated cholelithiasis. 3. Uncomplicated large bowel diverticulosis. 4. Urinary bladder calcified stones again noted. 5. Enlarged prostate. Correlate with clinical data. 6. Reticular nodular densities of the left pulmonary base with prominent interlobular septal markings of the included pulmonary bases. Inflammatory or infectious pneumonitis is not excluded. Electronically signed by Brett Wallace 12-31-2024 7:41 PM Chest X-Ray 12/31/24 21:55 Exam(s): XR CXR 1 VIEW EXAM: XR Chest, 1 View CLINICAL HISTORY: Reason for exam: vomiting ?PNA. TECHNIQUE: Frontal view of the chest. COMPARISON: 06/16/24 FINDINGS: Lungs: Reduced lung volumes with bronchovascular crowding. Bibasilar airspace opacities concerning for pneumonia or aspiration. Stable heart size, accentuated due to hypoventilation. Pleural space: No significant pleural effusion. No pneumothorax. Heart: No cardiomegaly or pulmonary vascular congestion. Bones/joints: No acute fracture. No dislocation. IMPRESSION: Bibasilar airspace opacities concerning for pneumonia or aspiration. Electronically signed by: Roxy Dangelo M.D. 12/31/24 23:49 PM Discharge Plan Visit Data Chief Complaint: Vomiting Stated Complaint: REF BY DOC, VOMITING, SWELLING ED Provider: Eveline Glass Discharge Problem: Vomiting, Rhinovirus, Esophagitis Patient Disposition: Admitted As Inpatient Discharge Instructions Interventions: ED Discharge Assessment Last Done: 01/01/25 00:56 Discharge Problem: Vomiting Qualifiers: Vomiting type: unspecified Nausea presence: with nausea Qualified Code(s): R 11.2 - Nausea with vomiting, unspecified
[2025-01-01 06:08] LABS: Calcium 8.8 mg/dl (8.6-10.3); Potassium 3.4 mmol/L (3.5-5.1)
[2025-01-01 06:13] LABS: Creatinine Urine Random 101.5 mg/dl
[2025-01-01 06:14] LABS: BUN Creatinine Ratio 12.3 (10-20); Creatinine Clr Calc Pharmacy 46.3 ml/min
[2025-01-01] MEDS ORDERED: AMOXICILLIN/CLAVULANATE 875 MG TAB PO SCH (08:00)
[2025-01-01 08:55] LABS: Hematocrit (blood only) 40.4 % (42.0-52.0); Hemoglobin 13.3 g/dl (14.0-18.0); Mean Corpuscular Hemoglobin 30.9 pg (25.0-34.0); Mean Corpuscular Hgb Conc 32.9 g/dL (32.0-36.0); Mean Corpuscular Volume 93.7 fL (80.0-100.0); Mean Platelet Volume 10.4 fL (9.4-12.4); Platelet Count 152 K/uL (130-400); RDW Coefficient of Variation 13.9 % (11.5-14.5); RDW Standard Deviation 47.8 fL (36.4-46.3); Red Blood Count 4.31 M/uL (4.70-6.10); White Blood Count 15.53 K/ul (4.8-10.8)
[2025-01-01] MEDS: POTASSIUM CHLORIDE CRTAB 20 MEQ TABCR PO STA (09:59)
[2025-01-01] MEDS: AMPICILLIN/SULBACTAM SOD 3,000 MG/100 ML BAG IV SCH (09:59)
[2025-01-01] MEDS: FAMOTIDINE 20MG IV PUSH 20 MG/5 ML SYR IV SCH (09:59)
[2025-01-01] MEDS: FINASTERIDE 5 MG TAB PO SCH (09:59)
[2025-01-01] MEDS: LOSARTAN POTASSIUM 25 MG TAB PO SCH (10:00)
[2025-01-01] MEDS: FLUoxetine HCL 10 MG CAP PO SCH (10:00)
[2025-01-01] MEDS: METOPROLOL SUCC 50MG EXT REL TAB PO SCH (10:01)
[2025-01-01] MEDS: PANTOprazole 40 MG/10 ML SYR IV SCH (10:01)
[2025-01-01] MEDS: ONDANSETRON INJ 2 MG/ML 2 ML VIAL IV PRN (13:11)
--- NOTE | 2025-01-01 15:36 | Hospitalist Progress Note ---
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 #Esophagitis/Vomiting/Aspiration/Rhinovirus N/V likely secondary to rhinovirus. Biofire + for rhinovirus. CBC w/ leukocytosis of 15.63, hgb 13.3. BMP w/ Creatinine of 1.46, K 3.4 (s/p repletion) CTAP: submucosal edema of included distal esophagus most worrisome for esophagitis. No mass/obstruction. CXR: bibasilar airspace opacities, concerning for PNA vs aspiration. Continue diet as tolerated - low fiber, heart healthy, vegetarian. Avoid foods that worsen GERD. Continue Unasyn for aspiration pneumonia. Transition to PO Augmentin when able. s/p IVF continue PPI & Pepcid scheulded. Zofran prn. Speech therapy consulted #Renal insufficiency Mild elevation in creatinine, likely 2/2 ongoing GI losses and minimal po intake. Cr 1.46- repeat AM UA without infection Bladder scan prn Chronic conditions: BPH- Dutasteride HTN/HLD/CAD with stent/statin intolerance- JUVENCIO RCA, left circumflex; losartan, aspirin, metoprolol, Praluent (12/30/2024 last dose); troponin WNL at admission. 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 Admission and Anticipated Discharge Date Admission Date: December 31, 2024 Subjective Patient seen and examined this afternoon. patient reports he was feeling okay this morning until he tried to eat. Reports he had ravoli w/ red sauce, spinach, and potatoes for lunch. Following this he felt nauseous. He has not had a BM since 12/29 but has been passing gas. Physical Exam Constitutional: WD/WN, vitals as above Eyes: PERRL, conjunctivae normal, anicteric sclerae Respiratory: normal respiratory effort, lungs clear to auscultation Cardiovascular: tachy, no murmur, no edema Gastrointestinal (Abdomen): normal bowel sounds, soft, nontender, no hepatosplenomegaly Psychiatric: A+Ox3, euthymic affect Results & Data Results & Data Vital Signs (Past 12 Hours) Vital Signs Temp Pulse Pulse Pulse Resp BP BP 01/01/25 13:49 36.7 C 94 H 16 131/81 01/01/25 13:13 97 H 24 128/83 01/01/25 09:45 120 H 20 121/73 01/01/25 08:00 116 H 15 136/81 01/01/25 07:12 117 H 01/01/25 06:00 112 H 20 121/89 01/01/25 05:30 120 H 18 112/80 01/01/25 05:21 37.2 C 131 H 18 130/91 01/01/25 04:30 113 H 20 120/83 01/01/25 04:00 115 H 20 119/83 Pulse Ox O2 Del Method 01/01/25 13:49 98 Room Air 01/01/25 13:13 97 Room Air 01/01/25 09:45 96 Room Air 01/01/25 08:00 92 Room Air 01/01/25 07:12 01/01/25 06:00 96 01/01/25 05:30 94 01/01/25 05:21 96 01/01/25 04:30 96 01/01/25 04:00 96 PG Care Time/CCT Total # of Minutes Spent Total Time Spent with Patient: Total time spent is greater than 50% in coordination of care (as documented) at patient's floor/unit and/or counseling patient: Coding Level of Care Code 65936 SUB INP/OBS CARE 3/50MIN Diagnoses Esophagitis K20.90 Vomiting R11.10 Rhinovirus B34.8 Renal insufficiency N28.9
[2025-01-01 19:08] VITALS: PULSE 87
--- NOTE | 2025-01-01 22:08 | Electrocardiogram Report ---
Test Reason : Blood Pressure : */* mmHG Vent. Rate : 109 BPM Atrial Rate : 109 BPM P-R Int : 162 ms QRS Dur : 132 ms QT Int : 370 ms P-R-T Axes : 25 62 -4 degrees QTcB Int : 498 ms Sinus tachycardia with Premature atrial complexes Right bundle branch block T wave abnormality, consider inferior ischemia Abnormal ECG When compared with ECG of 31-Dec-2024 16:04, No significant change was found Confirmed by Sandoval Guajardo ([id number]) on 01/01/2025 10:08:12 PM Referred By: REFERRED SELF Confirmed By: Sandoval Guajardo
[2025-01-02 05:47] LABS: Basophils # (auto) 0.06 K/uL (0.00-0.20); Basophils % (auto) 0.6 %; Eosinophils # (auto) 0.33 K/uL (0.00-0.50); Eosinophils % (auto) 3.6 %; Hematocrit (blood only) 38.8 % (42.0-52.0); Hemoglobin 12.6 g/dl (14.0-18.0); Immature Granulocytes # (auto) 0.05 K/uL (0.01-0.20); Immature Granulocytes % (auto) 0.5 %; Lymphocytes # (auto) 1.63 K/uL (1.20-3.40); Lymphocytes % (auto) 17.6 %; Mean Corpuscular Hemoglobin 30.8 pg (25.0-34.0); Mean Corpuscular Hgb Conc 32.5 g/dL (32.0-36.0); Mean Corpuscular Volume 94.9 fL (80.0-100.0); Mean Platelet Volume 10.5 fL (9.4-12.4); Monocytes # (auto) 1.09 K/uL (0.11-0.59); Monocytes % (auto) 11.8 %; Neutrophils % (auto) 65.9 %; Platelet Count 141 K/uL (130-400); RDW Standard Deviation 49.1 fL (36.4-46.3); Red Blood Count 4.09 M/uL (4.70-6.10); White Blood Count 9.26 K/ul (4.8-10.8)
[2025-01-02 06:04] LABS: BUN Creatinine Ratio 9.6 (10-20); Calcium 8.2 mg/dl (8.6-10.3); Creatinine Clr Calc Pharmacy 58.8 ml/min; Magnesium 1.8 mg/dl (1.7-2.4); Potassium 3.9 mmol/L (3.5-5.1)
[2025-01-02 07:45] VITALS: BP 150/79; RESP 18; TEMP 97.2; O2SAT 93
[2025-01-02] MEDS: POLYETHYLENE (MIRALAX) 17 GM PACK PO PRN (07:54)
--- NOTE | 2025-01-02 09:31 | Discharge Summary ---
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 #Esophagitis/Vomiting/Aspiration/Rhinovirus N/V likely secondary to rhinovirus. Biofire + for rhinovirus. CBC w/ resolution of leukocytosis. BMP stable. CTAP: submucosal edema of included distal esophagus most worrisome for esophagitis. No mass/obstruction. CXR: bibasilar airspace opacities, concerning for PNA vs aspiration. Tolerating low viber vegetarian diet. Transitioned to Augmentin for additional 4 days to complete 5 day course. Continue Pepcid #Renal insufficiency Mild elevation in creatinine, likely 2/2 ongoing GI losses and minimal po intake. Creatinine WNL - SELINA resolved. UA without infection Chronic conditions: BPH- Dutasteride HTN/HLD/CAD with stent/statin intolerance- JUVENCIO RCA, left circumflex; losartan, aspirin, metoprolol, Praluent (12/30/2024 last dose); troponin WNL at admission. 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 Patient's is present in room at time of visit homes to provide history. 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 States that he took his every 2-week injection as scheduled when on the bus trip. Patient was able to have lunch and throughout the day just stated that he felt more weak than usual and a generalized sense and not specific to 1 part of his body. When he got back on the bus, he reported some fatigue from not sleeping well the night prior. Around that time, he started to become nauseous and have episodes of vomiting which was the contents from his lunch. Continued to have emesis and his last formed emesis was around 0200 the day of arrival. From then on he has been having more liquid emesis and states that his most recent episode of emesis had some redness to it. States is having some abdominal pain that is generalized, and that at baseline he has difficulties with swallowing. 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 States he has been having more belching as well. No one around him has similar symptoms. Reports that he has had feelings that he has chills but no reported fever or feeling of feverish. Does have a little bit of chest tenderness which he believes is from vomiting forcefully as well as some acid reflux. Feels as though his hands and feet were swollen the morning of arrival. Otherwise no chest pain, SOB, palpitations, diarrhea/constipation, numbness/tingling, weakness, worsening dizziness, vertigo, tinnitus, additional URI symptoms, LUTS, or syncope. ED evaluation reve als leukocytosis 15.37, stable H&H; PT/INR WNL; CMP AG 12, creatinine 1.46, glucose 149, calcium 10.7, bilirubin 1.6; lipase pending; UA with protein, ketones, RBC, but no bacteria seen; BioFire positive for entero-/rhinovirus; CXR pending; EKG sinus tach with PACs and RBBB at 109 bpm.; Provided with 1L NSS, pantoprazole 40 mg IV, and azithromycin 4 mg IV x 2, metoprolol tartrate 5 mg IV and Toprol succinate 100 p.o., hydralazine 5 mg IV, and famotidine 20 mg IV in ED. Please see Dr. Myers's attestation for adjustments/additions to treatment plan. Discharge Exam Constitutional WD/WN, vitals as above Eyes PERRL, conjunctivae normal, anicteric sclerae Respiratory normal respiratory effort, lungs clear to auscultation Gastrointestinal (Abdomen) normal bowel sounds, soft, nontender, no hepatosplenomegaly Psychiatric A+Ox3, euthymic affect Discharge Plan Discharge Items Patient Disposition: Home - Self-Care Reason For Visit: VOMITING, RHINOVIRUS Discharge Diagnosis: Rhinovirus Activity: Resume your previous activity Non-emergency contact: Primary Care Provider Call non-emergency contact if: you have any medication questions and your symptoms worsen Follow-up/Referrals: Baltazar Serrano MD [Primary Care Provider] - 01/11/25 11:00 am Diet: Low Fiber and Vegetarian (Lacto-Ovo) Addtl Attending Provider Instructions: Mr. Gallardo, You were recently hospitalized for nausea and vomiting. You were found to have the rhinovirus which is likely the cause of your symptoms. You also aspirated some gastric contents into your lungs which caused aspiration pneumonia. Please see recommendations below regarding your discharge. Please take Augmentin twice daily for the next 4 days. Your first dose will be this evening 01/02. Please take with food to avoid GI upset. Please use Zofran as needed every 4 hours for nausea and vomiting. Please stay on a low fiber diet until you feel your symptoms have resolved. Please follow up with your PCP within 1-2 weeks of discharge. Please resume the remainder of your outpatient medications. If you develop any severe nausea, vomiting, or chest pain/shortnes of breath please report back to the ER for further care. Sincerely, Yael Condon PA-C Pending Studies at Discharge: No Stand-Alone Forms: My [facility] [employer], Smoking Cessation Medications and DC Order Prescriptions: New amoxicillin-pot clavulanate 875-125 mg tablet 1 tab PO BID 4 Days Qty: 8 0RF ondansetron 4 mg tablet,disintegrating 4 mg PO Q4H PRN (Reason: nausea and vomiting) Qty: 30 0RF Continued cyclobenzaprine 10 mg tablet 10 mg PO HS PRN (Reason: spasms) Qty: 30 1RF nitroglycerin [Nitrolingual] 400 mcg/spray spray,non-aerosol 1 spray sublingual UD PRN (Reason: Chest Pain) Qty: 25 3RF Praluent Pen 150 mg/mL pen injector 150 mg subcut Q14D Qty: 4 11RF Rx Instructions: inject into abdomen, thigh, or upper arm (deltoid muscle); rotate sites magnesium oxide 400 mg (241.3 mg magnesium) tablet 400 mg PO DAILY Qty: 90 3RF metoprolol succinate [Toprol XL] 100 mg tablet extended release 24 hr 100 mg PO QAM Qty: 90 3RF losartan [Cozaar] 25 mg tablet 12.5 mg PO QAM Qty: 90 3RF dutasteride [Avodart] 0.5 mg capsule 0.5 mg PO QAM Qty: 90 3RF famotidine 20 mg tablet 20 mg PO QPM Qty: 90 3RF amitriptyline 10 mg tablet 20 mg PO HS PRN (Reason: Insomnia) Qty: 60 3RF fluoxetine [Prozac] 10 mg capsule 10 mg PO QAM Qty: 90 3RF meclizine 25 mg tablet 25 mg PO DAILY PRN (Reason: DIZZY) Qty: 90 1RF ondansetron 4 mg tablet,disintegrating 4 mg PO Q8H PRN (Reason: nausea and vomiting) Qty: 30 1RF cyanocobalamin (vitamin B-12) [Vitamin B-12] 1,000 mcg Tablet 1,000 mcg PO DAILY flaxseed oil 1,000 mg Capsule 2,000 mg PO QPM cholecalciferol (vitamin D3) [Vitamin D3] 1,000 unit Capsule 1,000 unit PO DAILY Prostate Health 160-100-100 mg-unit-mcg Tablet 1 tab PO DAILY coenzyme Q10 [CoQ-10] 100 mg capsule 100 mg PO DAILY riboflavin (vitamin B2) [Vitamin B-2] 100 mg tablet 100 mg PO BID aspirin [Adult Low Dose Aspirin] 81 mg tablet,delayed release (DR/EC) 81 mg PO QPM Discharge Orders: Discharge Order (Routine); Ordered 01/02/25 Ordered By: Yael Condon Admission Data Admit Date/Time: 12/31/24 22:35 Attending Provider: Genna Johns Admit Provider: Nayan Myers Primary Care Provider: Baltazar Serrano Other Providers: Nayan Myers Other Interventions: Discharge Summary Assessment (RN) Last Done: 01/02/25 09:32 Hospital Stay Data Consultations 12/31/24 21:20 ED Decision to Admit Stat Diagnostic Imagining Performed 12/31/24 19:02 CT abd pelvis IV con only Stat Pending Results Patient Have Any Pending Studies at Discharge: No Discharge Instructions Given to Patient (Per Discharging Provider) Mr. Gallardo, You were recently hospitalized for nausea and vomiting. You were found to have the rhinovirus which is likely the cause of your symptoms. You also aspirated some gastric contents into your lungs which caused aspiration pneumonia. Please see recommendations below regarding your discharge. Please take Augmentin twice daily for the next 4 days. Your first dose will be this evening /. Please take with food to avoid GI upset. Please use Zofran as needed every 4 hours for nausea and vomiting. Please stay on a low fiber diet until you feel your symptoms have resolved. Please follow up with your PCP within 1-2 weeks of discharge. Please resume the remainder of your outpatient medications. If you develop any severe nausea, vomiting, or chest pain/shortnes of breath please report back to the ER for further care. Sincerely, Yael Condon PA-C Total Time Total Time Spent Total Time Spent (In Minutes): 40 Total Time Includes: Examination of the Patient, Discharge Planning and Medication Reconciliation Coding Level of Care Code 64604 INP/OBS DISCH >30 MIN Diagnoses Esophagitis K20.90 Vomiting R11.10 Rhinovirus B34.8 Renal insufficiency N28.9
== END 2025-01-02 12:21 | disposition home or self-care (01) | DRG 865 ==
LOC: ED 15:04 → EDINP 22:35 → SUATTDRO 22:35 → 3E 01-01 00:56